=== PATIENT | female | born 1935 | race Caucasian/White ===

== ENCOUNTER 2016-07-21 17:23 | Emergency (ER) | payer OTHER ==
[~2016-07-21] VITALS: Ht 152.4 cm; Wt 40.4 kg
[~2016-07-21 17:23] MED LIST: CEPH250C PO; FOLI-43 PO; METHOTREXATE; NEU300 PO; NORCO5 PO; PRED1TAB PO; PRO40 PO
[2016-07-21 17:41] VITALS: BP 131/74; PULSE 67; RESP 19; TEMP 98; O2SAT 97
[2016-07-21] MEDS ORDERED: predisone (17:49)
--- NOTE | 2016-07-21 20:00 | NUR ---
KELLI Davey examing pt.
--- NOTE | 2016-07-21 20:00 | NUR ---
Patient to [facility] for evaluation. Side rails up. Report given to Ted HAHN. Placed by Vandana HAHN.
--- NOTE | 2016-07-21 20:00 | NUR ---
Pt had a mechanical fall while ambulating with her walker. Pt injured her L hip. Denies KO. Remembers event. Will continue to monitor. No other injuries or complaints mentioned/noted. No distress noted.
[2016-07-21 21:15] VITALS: BP 131/74; PULSE 76; RESP 19; TEMP 98; O2SAT 97
--- NOTE | 2016-07-21 21:15 | NUR ---
Patient given written and verbal discharge instructions and verbalizes understanding. ER TURN OPERATOR discussed with patient the results and treatment provided. Patient in stable condition. ID arm band removed. Rx of Tylenol given. Patient educated on pain management and to follow up with PMD. Pain Scale 0/10. Opportunity for questions provided and answered.
== END 2016-07-21 21:15 | disposition home or self-care (01) ==
LOC: SED 17:23
DX: M25.552 Pain in left hip (principal); F03.90 Unspecified dementia, unspecified severity, without behavioral disturbance, psychotic disturbance, mood disturbance, and anxiety; M06.9 Rheumatoid arthritis, unspecified; Z88.0 Allergy status to penicillin; W17.89XA Other fall from one level to another, initial encounter; Y93.89 Activity, other specified; Y99.8 Other external cause status; Y92.89 Other specified places as the place of occurrence of the external cause
CPT/HCPCS: 73510-TC; 99284

== ENCOUNTER 2016-09-30 18:57 | Emergency (ER) | payer OTHER ==
[~2016-09-30] VITALS: Ht 147.3 cm; Wt 39.5 kg
[~2016-09-30 18:57] MED LIST changes: -FOLI-43 PO; -NEU300 PO; -PRED1TAB PO; -PRO40 PO; +predisone
[2016-09-30 19:00] VITALS: BP_SYST 132
[2016-09-30] MEDS: ACETAMINOPHEN 500 MG TABLET PO ONE (20:49)
[2016-09-30 21:57] VITALS: BP_SYST 132
== END 2016-09-30 21:57 | disposition home or self-care (01) ==
LOC: SED 18:57
DX: S20.212A Contusion of left front wall of thorax, initial encounter (principal); R03.0 Elevated blood-pressure reading, without diagnosis of hypertension; F03.90 Unspecified dementia, unspecified severity, without behavioral disturbance, psychotic disturbance, mood disturbance, and anxiety; M06.9 Rheumatoid arthritis, unspecified; Z88.0 Allergy status to penicillin; W01.0XXA Fall on same level from slipping, tripping and stumbling without subsequent striking against object, initial encounter; Y93.89 Activity, other specified; Y92.89 Other specified places as the place of occurrence of the external cause; Y99.8 Other external cause status
CPT/HCPCS: 71010; 73030; 99284

== ENCOUNTER 2017-03-17 06:48 | Inpatient (IN) | payer OTHER ==
[~2017-03-17] VITALS: Ht 147.3 cm; Wt 44.5 kg
[2017-03-17 06:55] VITALS: BP_SYST 159
[2017-03-17] MEDS ORDERED: HYDROcodone/ACETAMIN 5-325 MG TAB (NORCO/ VICODIN) PO ONE (07:15)
[2017-03-17] MEDS ORDERED: ONDANSETRON 4 MG ODT TAB PO ONE (09:00)
[2017-03-17 09:21] LABS: BASOPHILS # (AUTO) 0.1 K/uL (0.0-0.2); BASOPHILS % (AUTO) 0.9 % (0.0-2.0); EOSINOPHILS # (AUTO) 0.1 K/uL (0.0-0.4); EOSINOPHILS % (AUTO) 1.3 % (0.0-4.0); LYMPHOCYTES # (AUTO) 1.5 K/uL (1.0-5.5); LYMPHOCYTES % (AUTO) 15.7 % (20.5-51.5); MEAN CORPUSCULAR HEMOGLOBIN 35 pg (27-31); MEAN CORPUSCULAR HGB CONC 33 % (32-36); MEAN CORPUSCULAR VOLUME 104 fL (79.0-98.0); MONOCYTES # (AUTO) 0.7 K/uL (0.0-1.0); MONOCYTES % (AUTO) 7.3 % (1.7-9.3); NEUTROPHILS # (AUTO) 7.3 K/uL (1.8-7.7); NEUTROPHILS % (AUTO) 74.8 % (40.0-70.0); PLATELET COUNT (AUTO) 207 K/uL (130-430); RED BLOOD CELL COUNT(AUTO) 2.88 MIL/uL (4.2-6.2); RED CELL DISTRIBUTION WIDTH 13.4 % (9.0-15.0); WHITE BLOOD COUNT (AUTO) 9.7 K/uL (4.8-10.8)
[2017-03-17 09:28] LABS: ANION GAP 10 (5-15); CHLORIDE 98 mmol/L (98-107); CREATININE 1.07 mg/dL (0.55-1.30); GLUCOSE 105 mg/dL (70-99); POTASSIUM 3.3 mmol/L (3.5-5.1); SODIUM SERUM 131 mmol/L (136-145); UREA NITROGEN, BLOOD 19 mg/dL (8-21)
[2017-03-17 09:33] LABS: ALANINE AMINOTRANSFERASE 11 U/L (12-78); ASPARTATE AMINOTRANSFERASE 13 U/L (10-37); TOTAL BILIRUBIN 0.3 mg/dL (0.0-1.0)
[2017-03-17 10:07] LABS: INR 0.9 (0.8-1.2); PROTHROMBIN TIME 9.5 SECS (9.5-12.5)
[2017-03-17] MEDS ORDERED: MORPHINE 2 MG/ML INJ. SYRINGE IVP PRN (10:30)
[2017-03-17] MEDS ORDERED: VITD2000 PO (10:39)
[2017-03-17] MEDS ORDERED: FOLI-43 PO (10:39)
[2017-03-17] MEDS ORDERED: METH2.5T PO (10:39)
[2017-03-17] MEDS ORDERED: PRED5TAB PO (10:39)
[2017-03-17] MEDS ORDERED: NAPR220C15 PO (10:39)
[2017-03-17] MEDS ORDERED: OMEP20CA10 PO (10:39)
[2017-03-17 10:51] LABS: BILIRUBIN,URINE 1+ (NEGATIVE); BLOOD, URINE NEGATIVE (NEGATIVE); CLARITY/URINE CLEAR (CLEAR); COLOR,URINE YELLOW (YELLOW); GLUCOSE,URINE NEGATIVE (NEGATIVE); KETONES,URINE TRACE (NEGATIVE); LEUKOCYTE ESTERASE ,URINE 2+ (NEGATIVE); NITRITE, URINE POSITIVE (NEGATIVE); PROTEIN URINE TRACE (NEGATIVE); UROBILINOGEN,URINE 0.2 (0.2-1.0)
[2017-03-17 10:56] VITALS: BP_SYST 158
[2017-03-17 10:59] VITALS: BP_SYST 158
[2017-03-17 11:08] LABS: BACTERIA,URINE FEW /HPF (None Seen); RBC,URINE 0-3 /HPF (0-3)
[2017-03-17 11:09] LABS: MUCUS,URINE None Seen /LPF (None Seen)
[2017-03-17] MEDS: ONDANSETRON HCL 4 MG/2 ML VIAL IVP PRN ×2 (13:21→16:32)
[2017-03-17] MEDS: ACETAMINOPHEN 325 MG TABLET PO PRN (15:28)
[2017-03-17] MEDS ORDERED: MORPHINE 4 MG/ML INJ. SYRINGE IVP PRN (15:45)
[2017-03-17] MEDS: HYDROcodone/ACETAMIN 5-325 MG TAB (NORCO/ VICODIN) PO PRN (18:48)
[2017-03-17 20:14] LABS: BASOPHILS # (AUTO) 0.1 K/uL (0.0-0.2); BASOPHILS % (AUTO) 0.8 % (0.0-2.0); EOSINOPHILS # (AUTO) 0.2 K/uL (0.0-0.4); EOSINOPHILS % (AUTO) 2.1 % (0.0-4.0); HEMATOCRIT 25.9 % (36-48); HEMOGLOBIN 8.8 g/dL (12.0-16.0); LYMPHOCYTES # (AUTO) 1.5 K/uL (1.0-5.5); LYMPHOCYTES % (AUTO) 19.2 % (20.5-51.5); MEAN CORPUSCULAR HEMOGLOBIN 35 pg (27-31); MEAN CORPUSCULAR HGB CONC 34 % (32-36); MEAN CORPUSCULAR VOLUME 103 fL (79.0-98.0); MONOCYTES # (AUTO) 0.9 K/uL (0.0-1.0); NEUTROPHILS # (AUTO) 5.1 K/uL (1.8-7.7); NEUTROPHILS % (AUTO) 66.9 % (40.0-70.0); PLATELET COUNT (AUTO) 193 K/uL (130-430); RED BLOOD CELL COUNT(AUTO) 2.51 MIL/uL (4.2-6.2); RED CELL DISTRIBUTION WIDTH 13.2 % (9.0-15.0); WHITE BLOOD COUNT (AUTO) 7.8 K/uL (4.8-10.8)
[2017-03-17 20:45] VITALS: BP_SYST 106
[2017-03-17 23:11] LABS: PROTHROMBIN TIME 9.8 SECS (9.5-12.5)
[2017-03-18] VITALS (7 sets, daily range): BP systolic 100–142
[2017-03-18] MEDS: HYDROcodone/ACETAMIN 5-325 MG TAB (NORCO/ VICODIN) PO PRN ×2 (06:28→19:15)
[2017-03-18] MEDS: PREDNISONE 5 MG TABLET PO SCH (09:38)
[2017-03-18] MEDS: OMEPRAZOLE 20 MG CAPSULE.DR (PriLOSEC) PO SCH (09:39)
[2017-03-18] MEDS: ONDANSETRON 4 MG ODT TAB PO PRN (14:54)
[2017-03-19] MEDS: HYDROcodone/ACETAMIN 5-325 MG TAB (NORCO/ VICODIN) PO PRN ×2 (03:10→15:24)
[2017-03-19 03:54] VITALS: BP_SYST 145
[2017-03-19 08:00] VITALS: BP_SYST 122
[2017-03-19] MEDS: PREDNISONE 5 MG TABLET PO SCH (08:46)
[2017-03-19] MEDS: OMEPRAZOLE 20 MG CAPSULE.DR (PriLOSEC) PO SCH (08:46)
[2017-03-19 09:19] LABS: BASOPHILS # (AUTO) 0.2 K/uL (0.0-0.2); BASOPHILS % (AUTO) 2.5 % (0.0-2.0); EOSINOPHILS # (AUTO) 0.1 K/uL (0.0-0.4); EOSINOPHILS % (AUTO) 1.9 % (0.0-4.0); HEMATOCRIT 26.7 % (36-48); HEMOGLOBIN 8.8 g/dL (12.0-16.0); LYMPHOCYTES # (AUTO) 1.4 K/uL (1.0-5.5); LYMPHOCYTES % (AUTO) 18.7 % (20.5-51.5); MEAN CORPUSCULAR HEMOGLOBIN 34 pg (27-31); MEAN CORPUSCULAR HGB CONC 33 % (32-36); MEAN CORPUSCULAR VOLUME 104 fL (79.0-98.0); MONOCYTES # (AUTO) 0.9 K/uL (0.0-1.0); MONOCYTES % (AUTO) 12.4 % (1.7-9.3); NEUTROPHILS % (AUTO) 64.5 % (40.0-70.0); PLATELET COUNT (AUTO) 213 K/uL (130-430); RED BLOOD CELL COUNT(AUTO) 2.56 MIL/uL (4.2-6.2); RED CELL DISTRIBUTION WIDTH 13.3 % (9.0-15.0); WHITE BLOOD COUNT (AUTO) 7.6 K/uL (4.8-10.8)
[2017-03-19] MEDS ORDERED: LEVOFLOXACIN 500 MG TABLET PO ONE (10:00)
[2017-03-19 11:28] VITALS: BP_SYST 106
[2017-03-19] MEDS ORDERED: ACET-2165 PO (11:30)
[2017-03-19] MEDS ORDERED: LEVO500T20 (11:32)
[2017-03-19] MEDS: ONDANSETRON 4 MG ODT TAB PO PRN ×2 (13:05→18:09)
[2017-03-19] MEDS: ACETAMINOPHEN 325 MG TABLET PO PRN (13:08)
[2017-03-19 15:10] VITALS: BP_SYST 98
[2017-03-19 20:10] VITALS: BP_SYST 117
[2017-03-19 23:46] VITALS: BP_SYST 133
[2017-03-20] MEDS: HYDROcodone/ACETAMIN 5-325 MG TAB (NORCO/ VICODIN) PO PRN (00:07)
[2017-03-20 03:43] VITALS: BP_SYST 133
[2017-03-20 07:47] VITALS: BP_SYST 152
[2017-03-20] MEDS: PREDNISONE 5 MG TABLET PO SCH (08:23)
[2017-03-20] MEDS: OMEPRAZOLE 20 MG CAPSULE.DR (PriLOSEC) PO SCH (08:23)
[2017-03-20] MEDS ORDERED: LEVOFLOXACIN 500 MG TABLET PO SCH (10:00)
[2017-03-20 11:24] VITALS: BP_SYST 142
== END 2017-03-20 16:35 | DRG 605 ==
LOC: SED 06:48 → SMU 09:59
PROVIDERS: ADMIT Internal Medicine Hospice and Palliative Medicine; ATTEND Internal Medicine Hospice and Palliative Medicine
DX: S70.01XA Contusion of right hip, initial encounter (principal); D64.9 Anemia, unspecified; F03.90 Unspecified dementia, unspecified severity, without behavioral disturbance, psychotic disturbance, mood disturbance, and anxiety; N39.0 Urinary tract infection, site not specified; M06.9 Rheumatoid arthritis, unspecified; W19.XXXA Unspecified fall, initial encounter; M81.0 Age-related osteoporosis without current pathological fracture; X58.XXXA Exposure to other specified factors, initial encounter; Y93.89 Activity, other specified; Y92.89 Other specified places as the place of occurrence of the external cause; Z93.3 Colostomy status; Y99.8 Other external cause status
CPT/HCPCS: 36415; 72131; 72192-TC; 73502; 73564; 80053; 81000-TC; 83605; 84484; 85025; 85610-TC; 85730-TC; 93005; 97110-GP; 99285; A5061; J2270; J2405; J7512; Q0162

== ENCOUNTER 2017-04-04 13:56 | Emergency (ER) | payer OTHER ==
[~2017-04-04] VITALS: Ht 144.8 cm; Wt 43.5 kg
[~2017-04-04 13:56] MED LIST changes: +ACET-2165 PO; -CEPH250C PO; +FOLI-43 PO; +LEVO500T20; +METH2.5T PO; -METHOTREXATE; +NAPR220C15 PO; -NORCO5 PO; +OMEP20CA10 PO; +PRED5TAB PO; +VITD2000 PO; -predisone
[2017-04-04 14:15] VITALS: BP_SYST 119
[2017-04-04 16:17] VITALS: BP_SYST 119
== END 2017-04-04 16:17 | disposition home or self-care (01) ==
LOC: SED 13:56
DX: S20.212A Contusion of left front wall of thorax, initial encounter (principal); S09.90XA Unspecified injury of head, initial encounter; Z88.0 Allergy status to penicillin; M06.9 Rheumatoid arthritis, unspecified; F03.90 Unspecified dementia, unspecified severity, without behavioral disturbance, psychotic disturbance, mood disturbance, and anxiety; Z79.899 Other long term (current) drug therapy; W06.XXXA Fall from bed, initial encounter; Y93.89 Activity, other specified; Y92.89 Other specified places as the place of occurrence of the external cause; Y99.8 Other external cause status
CPT/HCPCS: 70450-TC; 71250-TC; 72192-TC; 99284

== ENCOUNTER 2017-08-09 14:26 | Emergency (ER) | payer OTHER ==
[~2017-08-09] VITALS: Ht 139.7 cm; Wt 39.5 kg
[2017-08-09 14:31] VITALS: BP_SYST 131
[2017-08-09 16:59] VITALS: BP_SYST 115
== END 2017-08-09 16:28 | disposition home or self-care (01) ==
LOC: SED 14:26
DX: Z46.6 Encounter for fitting and adjustment of urinary device (principal); F03.90 Unspecified dementia, unspecified severity, without behavioral disturbance, psychotic disturbance, mood disturbance, and anxiety; M06.9 Rheumatoid arthritis, unspecified; Z88.0 Allergy status to penicillin; Z79.899 Other long term (current) drug therapy
CPT/HCPCS: 99284

== ENCOUNTER 2017-11-18 19:59 | Emergency (ER) | payer OTHER ==
[~2017-11-18] VITALS: Ht 142.2 cm; Wt 39.9 kg
[~2017-11-18 19:59] MED LIST changes: +DENO60DI SQ; +FERR-57 PO; +namenda PO
[2017-11-18 20:00] VITALS: BP_SYST 115
[2017-11-18 20:36] VITALS: BP_SYST 115
== END 2017-11-18 20:35 | disposition home or self-care (01) ==
LOC: SED 19:59
DX: H11.31 Conjunctival hemorrhage, right eye (principal); F03.90 Unspecified dementia, unspecified severity, without behavioral disturbance, psychotic disturbance, mood disturbance, and anxiety; M06.9 Rheumatoid arthritis, unspecified; Z88.0 Allergy status to penicillin; Z88.8 Allergy status to other drugs, medicaments and biological substances
CPT/HCPCS: 99283

== ENCOUNTER 2018-01-12 14:18 | Emergency (ER) | payer OTHER ==
[~2018-01-12] VITALS: Ht 147.3 cm; Wt 40.8 kg
[2018-01-12 14:18] VITALS: BP_SYST 136
--- NOTE | 2018-01-12 14:25 | NUR ---
Pt placed to ER bed 06, report given to SELMA Crisostomo.
--- NOTE | 2018-01-12 14:30 | NUR ---
Pt complains of right ankle pain for the past three weeks. Pt denies any trauma. Noted bruising to left knee and minor swelling. Pt denies N/V or fever. NO other injuries/complaints per patient or noted. Family at bedside.
--- NOTE | 2018-01-12 14:35 | NUR ---
ER Dr. Barton at bedside examining patient.
[2018-01-12 16:58] VITALS: BP_SYST 109
--- NOTE | 2018-01-12 16:59 | NUR ---
Patient given written and verbal discharge instructions and verbalizes understanding. ER MD discussed with patient the results and treatment provided. Patient in stable condition. ID arm band removed. Rx of motrin given. Patient educated on pain management and to follow up with PMD. Pain Scale 3/10. Opportunity for questions provided and answered. Medication side effect fact sheet provided.
== END 2018-01-12 16:59 | disposition home or self-care (01) ==
LOC: SED 14:18
DX: S80.02XA Contusion of left knee, initial encounter (principal); S90.01XA Contusion of right ankle, initial encounter; M19.90 Unspecified osteoarthritis, unspecified site; E11.9 Type 2 diabetes mellitus without complications; R03.0 Elevated blood-pressure reading, without diagnosis of hypertension; F03.90 Unspecified dementia, unspecified severity, without behavioral disturbance, psychotic disturbance, mood disturbance, and anxiety; Z88.0 Allergy status to penicillin; Z79.899 Other long term (current) drug therapy; X58.XXXA Exposure to other specified factors, initial encounter; Y93.89 Activity, other specified; Y92.89 Other specified places as the place of occurrence of the external cause; Y99.8 Other external cause status
CPT/HCPCS: 73560-TC; 99284

== ENCOUNTER 2018-04-27 20:59 | Inpatient (IN) | payer OTHER ==
[~2018-04-27] VITALS: Ht 144.8 cm; Wt 42.2 kg
[~2018-04-27 20:59] MED LIST changes: -ACET-2165 PO; -DENO60DI SQ; -FERR-57 PO; -LEVO500T20; +SERT25TA PO
[2018-04-27 21:22] VITALS: BP_SYST 150
--- NOTE | 2018-04-27 21:22 | NUR ---
Patient to ER bed 1 to gown for evaluation. Side rails up. Report given to SELMA Nolasco.
--- NOTE | 2018-04-27 22:10 | NUR ---
ER at bedside examining patient.
--- NOTE | 2018-04-27 22:20 | NUR ---
Pt came in to the ED for vomitting and generalized weakness. PT's daughter says that she reports the symptoms started at 1300 today and she has not been able to keep anything down. Pt was in this ED for a UTI 04/10/2018 and was put on a leg harris, started on ABX for 7 days. No fever, chills, chest pain, SOB, abd pain, or diarrhea. NO other complaints/injuries noted. Jamison. cont. to monitor.
--- NOTE | 2018-04-27 22:20 | NUR ---
Note undone in EDM - 04/28/18 at 0630 by [email or web address] Pt came in to the ED for comitting and generalized weakness. PT's daughter says that she reports the symptoms started at 1300 today and she has not been able to keep anything down. Pt was in this ED for a UTI 04/10/2018 and was put on a leg harris, started on ABX for 7 days. No fever, chills, chest pain, SOB, abd pain, or diarrhea. NO other complaints/injuries noted. Jamison. cont. to monitor.
--- NOTE | 2018-04-27 22:31 | NUR ---
Patient medicated with zofran IVP and fluids per MD order. Tolerated well. Will cont. to monitor.
[2018-04-27] MEDS ORDERED: NACL 0.9% 1,000 ML IV ONE (23:09)
[2018-04-27] MEDS ORDERED: ONDANSETRON HCL 4 MG/2 ML VIAL IVP ONE (23:15)
[2018-04-27 23:40] LABS: HEMATOCRIT 34.8 % (36-48); HEMOGLOBIN 11.6 g/dL (12.0-16.0); MEAN CORPUSCULAR HEMOGLOBIN 35 pg (27-31); MEAN CORPUSCULAR HGB CONC 33 % (32-36); MEAN CORPUSCULAR VOLUME 106 fL (79.0-98.0); PLATELET COUNT (AUTO) 245 K/uL (130-430); RED BLOOD CELL COUNT(AUTO) 3.29 MIL/uL (4.2-6.2); RED CELL DISTRIBUTION WIDTH 13.5 % (9.0-15.0); WHITE BLOOD COUNT (AUTO) 9.4 K/uL (4.8-10.8)
[2018-04-27 23:57] LABS: ANION GAP 9 (5-15); CALCIUM 9.2 mg/dL (8.4-11.0); CHLORIDE 103 mmol/L (98-107); CREATININE 0.87 mg/dL (0.55-1.30); GLUCOSE 79 mg/dL (70-99); POTASSIUM 4.4 mmol/L (3.5-5.1); SODIUM SERUM 139 mmol/L (136-145); UREA NITROGEN, BLOOD 17 mg/dL (8-21)
--- NOTE | 2018-04-28 | NUR ---
Pt resting comfortably in bed. No signs of acute distress.
[2018-04-28 00:01] LABS: ALANINE AMINOTRANSFERASE 19 U/L (12-78); ALBUMIN 3.2 g/dL (3.4-4.8); AMYLASE 91 U/L (0-100); ASPARTATE AMINOTRANSFERASE 17 U/L (10-37); LIPASE 92 U/L (73-393); TOTAL BILIRUBIN 0.3 mg/dL (0.0-1.0)
[2018-04-28 00:21] LABS: BASOPHILS % (MANUAL) 0 % (0-2); EOSINOPHILS % (MANUAL) 1 % (0-7); LYMPHOCYTES % (MANUAL) 9 % (20-46); MONOCYTES % (MANUAL) 5 % (0-11)
[2018-04-28 00:31] LABS: PROTHROMBIN TIME 9.9 SECS (9.5-12.5)
[2018-04-28 00:50] LABS: BILIRUBIN,URINE NEGATIVE (NEGATIVE); COLOR,URINE YELLOW (YELLOW); GLUCOSE,URINE NEGATIVE (NEGATIVE); KETONES,URINE NEGATIVE (NEGATIVE); LEUKOCYTE ESTERASE ,URINE 3+ (NEGATIVE); NITRITE, URINE POSITIVE (NEGATIVE); PROTEIN URINE TRACE (NEGATIVE); UROBILINOGEN,URINE 0.2 (0.2-1.0)
[2018-04-28 00:53] LABS: BLOOD, URINE TRACE (NEGATIVE); CLARITY/URINE SLIGHTLY HAZY (CLEAR)
[2018-04-28 00:59] LABS: WBC,URINE 80-100 /HPF (0-3)
[2018-04-28 01:00] LABS: BACTERIA,URINE MANY /HPF (None Seen)
[2018-04-28] MEDS ORDERED: LEVOFLOXACIN 500 MG/D5W 100 ML IV ONE (01:00)
--- NOTE | 2018-04-28 01:51 | NUR ---
Medication was given, pt tolerated well. No adverse reaction, will continue to monitor
--- NOTE | 2018-04-28 01:58 | NUR ---
Medication reconciliation completed with information provided by patient. Any prior medication reconciliation on file was reviewed and corrected.
[2018-04-28] MEDS ORDERED: ACETAMINOPHEN 325 MG TABLET PO PRN (04:45)
--- NOTE | 2018-04-28 04:50 | NUR ---
Patient will be admitted to care of Dr. Ramos. Admitted to TELE unit. Will go to room 100b. Belongings list completed. Summary report printed. Report will be given at bedside.
[2018-04-28 05:05] VITALS: BP_SYST 133
--- NOTE | 2018-04-28 05:12 | NUR ---
Transfer to TELE via ACLS protocol. Licensed nurse present. IV present no signs or symptoms of infiltration.
--- NOTE | 2018-04-28 05:12 | NUR ---
ADMISSION NOTE Received patient from ER via gurney. Patient admitted with diagnosis of . Patient is awake, alert, oriented X 4. Patient oriented to hospital room, call light, toileting, pain management and safety-teach back done. Patient informed that ADOLFO will be HER nurse and that their room number is 100B. Personal belongings checked and Belongings List documented. Call light within reach.
[2018-04-28] MEDS: 0.45% NS 500 ML IV SCH ×2 (06:25→09:42)
[2018-04-28] MEDS: ONDANSETRON HCL 4 MG/2 ML VIAL IVP PRN ×3 (06:29→20:21)
--- NOTE | 2018-04-28 06:43 | NUR ---
MD FOSTER CALLED [facility] AT SPOKE WITH DR.REDDY MO MALLU INVENTORY CONTROL ASSISTANT.
--- NOTE | 2018-04-28 07:01 | NUR ---
Spoke with Dr Richard Saleh and spoke with Dr Ramos and notify him about patient's allergy to Pennicillin and Meclemine. Dr Ramos ordered Meropenem earlier. Dr Ramos stated " Just go ahead, try it and closely monitor the patient". Will endorse to incoming nurse. Addendum: 04/28/18 at 0707 by Cristhian Zheng RN Dr Ramos also ordered to discontinue harris cath and insert new one.
--- NOTE | 2018-04-28 07:45 | NUR ---
INITIAL NOTE RECEIVED PATIENT FROM DIRECTOR OF SLEEP. PATIENT AWAKE IN BED. A/OX1. PATIENT CONFUSED. ROOM AIR. NO ACUTE DISTRESS. NO SOB. RESPIRATION EVEN AND UNLABORED. SKIN WARM AND DRY TO TOUCH. IV INTACT AND PATENT. MEGHAN IV FLUID ORDERED. LOMELI CATH INTACT AND PATENT DRAINING CLOUDY URINE; LOMELI WAS INSERTED 04/10/18, WILL CHANGE LOMELI TODAY WHEN PATIENT ALLOWS. COLOSTOMY INTACT AND PATENT TO LEFT ABDOMEN. BED IN LOW AND LOCKED POSITION. SIDERAIL UPX3. BED ALARM ON. ALL NEEDS MET. CALL LIGHT IN REACH. CONT TO MONITOR
--- NOTE | 2018-04-28 07:52 | NUR ---
Printer not working Wound picture is blurry, printer is not working. Ordered work order to service the printer.
[2018-04-28 08:00] VITALS: BP_SYST 156
--- NOTE | 2018-04-28 08:45 | NUR ---
NOTE PATIENT REFUSED BLOOD DRAW. EXPLAINED TO PATIENT WHAT IT IS FOR AND WHY IT IS NEEDED; PATIENT CONT TO REFUSE AT THIS TIME. WILL ATTEMPT AGAIN LATER
--- NOTE | 2018-04-28 09:15 | NUR ---
SEEN AND EXAMINED BY AT BEDSIDE. AWARE OF PATIENT'S ALLERGY AND OKAY TO ADMINISTER MERREM; TO MONITOR FOR S/SX ASE. CONT TO MONITOR
[2018-04-28] MEDS: ENOXAPARIN SODIUM 30 MG/0.3 ML SYRINGE SUBCUT SCH (09:35)
[2018-04-28] MEDS: MEROPENEM 500 MG in NS 50 ML IV SCH ×2 (09:36→20:16)
[2018-04-28] MEDS ORDERED: PREDNISONE 5 MG TABLET PO ONE (10:00)
[2018-04-28] MEDS ORDERED: CHOLECALCIFEROL (VITAMIN D3) 2,000 UNIT TABLET PO ONE (10:00)
[2018-04-28] MEDS ORDERED: OMEPRAZOLE 20 MG CAPSULE.DR (PriLOSEC) PO ONE (10:00)
--- NOTE | 2018-04-28 10:00 | NUR ---
LOMELI CHANGE EXPLAINED TO PATIENT THAT LOMELI CATH NEEDS TO BE CHANGED AND EXPLAINED PROCEDURE TO PATIENT; PATIENT OKAY TO CHANGE LOMELI AT THIS TIME. Lomeli catheter inserted with use of sterile technique. Bulb inflated with 10 cc sterile water. Immediate return of 20cc cloudy yellow urine noted. Bedside drainage bag placed below level of bladder. Pt tolerated procedure well. No complications noted.
--- NOTE | 2018-04-28 10:20 | NUR ---
IV MERREM PATIENT AWAKE/ALERT. VITAL SIGN STABLE. MEGHAN IV MERREM ORDERED WITH NO S/SX ADVERSE SIDE EFFECT NOTED; PATIENT DENIED SOB, ITCHING, DISCOMFORT. CONT TO MONITOR WITH FREQUENT VISUAL CHECKS. CALL LIGHT IN REACH
--- NOTE | 2018-04-28 11:40 | NUR ---
NOTE ASSISTED BLENDER HELPER FOR BLOOD DRAW. KEPT PATIENT CALM. BLOOD DRAW SUCCESSFUL WITH NO COMPLICATIONS NOTED AND PATIENT TOLERATED WELL.
[2018-04-28 11:56] LABS: EOSINOPHILS # (AUTO) 0.2 K/uL (0.0-0.4); HEMATOCRIT 35.1 % (36-48); HEMOGLOBIN 11.4 g/dL (12.0-16.0); MEAN CORPUSCULAR HEMOGLOBIN 34 pg (27-31); MEAN CORPUSCULAR HGB CONC 32 % (32-36); MEAN CORPUSCULAR VOLUME 105 fL (79.0-98.0); PLATELET COUNT (AUTO) 244 K/uL (130-430); RED BLOOD CELL COUNT(AUTO) 3.33 MIL/uL (4.2-6.2); RED CELL DISTRIBUTION WIDTH 13.8 % (9.0-15.0)
[2018-04-28 12:14] VITALS: BP_SYST 148
[2018-04-28 12:16] LABS: BASOPHILS % (AUTO) 0.5 % (0.0-2.0); EOSINOPHILS % (AUTO) 2.4 % (0.0-4.0); LYMPHOCYTES % (AUTO) 11.5 % (20.5-51.5); MONOCYTES % (AUTO) 9.7 % (1.7-9.3); WHITE BLOOD COUNT (AUTO) 9.6 K/uL (4.8-10.8)
[2018-04-28 12:17] LABS: LYMPHOCYTES # (AUTO) 1.1 K/uL (1.0-5.5); MONOCYTES # (AUTO) 0.9 K/uL (0.0-1.0); NEUTROPHILS # (AUTO) 7.4 K/uL (1.8-7.7)
[2018-04-28 12:19] LABS: NEUTROPHILS % (AUTO) 75.9 % (40.0-70.0)
[2018-04-28 12:30] LABS: ANION GAP 7 (5-15); CALCIUM 8.5 mg/dL (8.4-11.0); CHLORIDE 107 mmol/L (98-107); GLUCOSE 79 mg/dL (70-99); SODIUM SERUM 138 mmol/L (136-145); UREA NITROGEN, BLOOD 13 mg/dL (8-21)
[2018-04-28 12:33] LABS: ALANINE AMINOTRANSFERASE 14 U/L (12-78); ASPARTATE AMINOTRANSFERASE 15 U/L (10-37); TOTAL BILIRUBIN 0.4 mg/dL (0.0-1.0)
--- NOTE | 2018-04-28 13:00 | NUR ---
NOTE PATIENT REFUSED LUNCH WITH HAZMAT TANKER DRIVER. EXPLAINED TO PATIENT RISK OF SKIPPING MEALS. PATIENT AGREED TO EAT AND ASSISTED PATIENT WITH PATIENT EATING ABOUT 15% BEFORE PATIENT REFUSING TO EAT ANY MORE; PATIENT DID NOT WANT ANY SUBSTITUTES AT THIS TIME AND SHE SAID MAYBE LATER. ALL NEEDS MET. CONT TO MONITOR. CALL LIGHT IN REACH.
--- NOTE | 2018-04-28 14:24 | NUR ---
NOTE PATIENT SITTING UP IN BED. VITAL SIGN STABLE. NO C/O PAIN. NO ACUTE DISTRESS. NO SOB. RESPIRATION EVEN AND UNLABORED. SKIN WARM AND DRY TO TOUCH. ALL NEEDS MET. CALL LIGHT IN REACH. DAUGHTER AT BEDSIDE
[2018-04-28] MEDS: 0.45% NS 1,000 ML IV SCH (14:46)
--- NOTE | 2018-04-28 14:50 | NUR ---
IVF CHANGED PATIENT'S IVF. HUNG NEW BAG ORDERED, MEGHAN WELL. IV INTACT AND PATENT. CONT TO MONITOR. CALL LIGHT IN REACH.
--- NOTE | 2018-04-28 16:44 | NUR ---
NOTE PATIENT AWAKE IN BED. PATIENT STATED SHE SLEPT ENOUGH. DENIES PAIN AT THIS TIME. ALL NEEDS MET. CONT TO MONITOR. CALL LIGHT IN REACH.
[2018-04-28 16:46] VITALS: BP_SYST 120
--- NOTE | 2018-04-28 18:45 | NUR ---
CLOSING NOTE PATIENT SITTING UP IN BED WITH DAUGHTER AT BEDSIDE. NO ACUTE DISTRESS. NO SOB. RESPIRATION EVEN AND UNLABORED. SKIN WARM AND DRY TO TOUCH. IV INTACT AND PATENT. MEGHAN IV FLUID ORDERED. COLOSTOMY INTACT AND PATENT. LOMELI CATH INTACT AND PATENT DRAINING CLOUDY YELLOW URINE. ALL NEEDS MET. BED IN LOW AND LOCKED POSITION. SIDERAIL UPX3. CALL LIGHT IN REACH. CONT TO MONITOR. WILL ENDORSE TO ONCOMING SHIFT.
[2018-04-28 20:00] VITALS: BP_SYST 144
--- NOTE | 2018-04-28 20:00 | NUR ---
INITIAL NOTE PATIENT CARE ENDORSED FROM DAY SHIFT. PATIENT IS AWAKE IN BED, FORGETFUL. DAUGHTER AT BEDSIDE. RESPIRATIONS ARE EVEN AND UNLABORED ON ROOM AIR, NO REPORTS OF SOB. NO REPORTED SIGNS OR SYMPTOMS OF DISTRESS. SKIN WARM AND DRY TO TOUCH. IV INTACT AND PATENT W/ FLUIDS RUNNING. LOMELI IN PLACE AND DRAINING TO GRAVITY. COLOSTOMY IN PLACE, NO DRAINAGE NOTED, WILL CONTINUE TO MONITOR FOR OUTPUT. PATIENT EDUCATED ON SAFETY/FALL PRECAUTIONS, BED IN LOWEST POSITION WITH CALL LIGHT IN REACH, BED ALARM ON. ALL NEEDS MET. WILL CONTINUE TO MONITOR.
--- NOTE | 2018-04-28 22:00 | NUR ---
NURSING NOTES PT IS RESTING IN BED WITH EYES CLOSED, EASILY AROUSED. BREATHING IS EVEN AND UNLABORED. NO NOTED SIGNS OR SYMPTOMS OF DISTRESS. IV SITE DRY AND INTACT WITH FLUIDS RUNNING. LOMELI DRAINING TO GRAVITY. FALL/SAFETY PRECAUTIONS IN PLACE, CALL LIGHT W/IN REACH. BED ALARM IS ON. WILL CONTINUE TO MONITOR
[2018-04-29] VITALS (7 sets, daily range): BP systolic 125–150
[2018-04-29] MEDS: 0.45% NS 1,000 ML IV SCH ×3 (00:12→20:51)
--- NOTE | 2018-04-29 04:00 | NUR ---
NURSING NOTES PT AWOKE DISORIENTED. EASILY REORIENTED TO SURROUNDINGS. BREATHING IS EVEN AND UNLABORED. NO NOTED SIGNS OR SYMPTOMS OF DISTRESS. IV SITE DRY AND INTACT WITH FLUIDS RUNNING. LOMELI DRAINING TO GRAVITY. COLOSTOMY BAG CHANGED AND STOMA CARE PROVIDED. SMALL AMOUNT OF BROWN PASTY STOOL NOTED. FALL/SAFETY PRECAUTIONS IN PLACE, CALL LIGHT W/IN REACH. BED ALARM IS ON. WILL CONTINUE TO MONITOR
--- NOTE | 2018-04-29 06:38 | NUR ---
CLOSING NOTE PT IS RESTING IN BED WITH EYES CLOSED. BREATHING IS EVEN AND UNLABORED. NO NOTED SIGNS OR SYMPTOMS OF DISTRESS. SKIN IS WARM AND DRY. IV SITE IS DRY AND INTACT WITH ORDERED FLUID RUNNING. LOMELI IS INTACT AND DRAINING CLOUDY YELLOW URINE TO GRAVITY. COLOSTOMY INTACT AND PATENT. ALL CARE NEEDS WERE ADDRESSED. PATIENT EDUCATED ON SAFETY/FALL PRECAUTIONS AND WERE MAINTAIN THROUGHOUT SHIFT. BED ALARM IS ENGAGED. WILL ENDORSE CARE TO ONCOMING RN.
[2018-04-29] MEDS: MEROPENEM 500 MG in NS 50 ML IV SCH ×2 (08:26→20:42)
[2018-04-29] MEDS: PREDNISONE 5 MG TABLET PO SCH (08:27)
[2018-04-29] MEDS: CHOLECALCIFEROL (VITAMIN D3) 2,000 UNIT TABLET PO SCH (08:27)
[2018-04-29] MEDS: FOLIC ACID 1 MG TABLET PO SCH (08:27)
[2018-04-29] MEDS: ENOXAPARIN SODIUM 30 MG/0.3 ML SYRINGE SUBCUT SCH (08:28)
--- NOTE | 2018-04-29 08:40 | NUR ---
GI Patient vomited after eating with episode of coughing while eating ,oral care given assisted in feeding,aspiration precaution , Zofran IV push given slowly will monitor. Addendum: 04/29/18 at 1002 by Xenia Santos RN Patient able to sleep no sign of acute distress.
[2018-04-29] MEDS: ONDANSETRON HCL 4 MG/2 ML VIAL IVP PRN (08:47)
[2018-04-29] MEDS ORDERED: OMEPRAZOLE 20 MG CAPSULE.DR (PriLOSEC) PO SCH (09:00)
--- NOTE | 2018-04-29 09:20 | NUR ---
Dr. Ramos informed regarding nausea/vomiting , episode of chocking yesterday, difficulty of swallowing certain food , with n.o. carried out.
--- NOTE | 2018-04-29 09:31 | NUR ---
GI consult called: for Dr. Charles, ordered by Dr. Ramos, regarding difficulty swallowing/nausea/vomiting, spoke with Jailene.
--- NOTE | 2018-04-29 10:46 | NUR ---
Hilton Zarate called: for Minna, ordered by Dr. Ramos, left message.
--- NOTE | 2018-04-29 11:35 | NUR ---
Patient awake watching TV no sign of acute distress., needs attended.
--- NOTE | 2018-04-29 12:49 | NUR ---
Assisted patient with pureed diet , after 2 spoon patient started vomiting no aspiration , oral care given, feeding stop . Dr Richard villalta. Addendum: 04/29/18 at 1330 by Xenia Santos RN Kept NPO per MD.
[2018-04-29] MEDS ORDERED: PANTOPRAZOLE SODIUM 40 MG/VIAL (PROTONIX) IVP ONE (14:00)
--- NOTE | 2018-04-29 15:16 | NUR ---
S.T. SWALLOW EVAL COMPLETED. PT PRESENTS W/ FUNCTIONAL OROPHARYNGEAL SWALLOW FOR PUREE AND NECTAR THICK LIQUIDS. NO S/S OF ASPIRATION. 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 NO FURTHER P.O. GIVEN. REC: NPO. GI CONSULT TO ASSESS ESOPHAGEAL STATUS. NURSE THEODORE NOTIFIED. G8996 CK G8997 CK G8998 CK NOMS LEVEL 4
--- NOTE | 2018-04-29 18:37 | NUR ---
Patient is resting no sign of acute discomfort, denies any abdominal pain, needs attended.
--- NOTE | 2018-04-29 20:00 | NUR ---
INITIAL NOTES: PATIENT IN BED AWAKE ORIENTED X3. FORGET FUL OF TIME. OCCASIONAL CONFUSE. IVF INFUSING WELL, SITE CLEAR. CALL LIGHT WITHIN REACH. BED IN LOW POSITION FOR SAFETY. SINUS RHYTHM . WILL MONITOR CLOSELY.
--- NOTE | 2018-04-29 21:15 | NUR ---
Luigi DICK CALLED BACK. REPORTED SEVERE CONFUSION WITH ORDER OF SEROQUEL 25MG PO. WAS GIVEN AFTER PHARMACY VERIFIED. Addendum: 04/30/18 at 0808 by Barbra Mcclain RN THIS NOTES BELONGS TO ANOTHER PATIENT.
--- NOTE | 2018-04-29 22:00 | NUR ---
ASKING FOR WATER TO MOISTENED HER MOUTH. ICE CHIPS GIVEN THEN HAD SMALL EMESIS.
--- NOTE | 2018-04-29 22:30 | NUR ---
MOVED TO RM 103A FOR SAFETY. [facility] PATENT.
--- NOTE | 2018-04-30 02:00 | NUR ---
RESTING QUITELY BREATHING PATTERN REGULAR.
--- NOTE | 2018-04-30 06:30 | NUR ---
CLOSING: ALL NEEDS WERE MET. NO ACUTE CARDIOPULMONARY DISTRESS . IVF AND LOMELI PATENT.
[2018-04-30 06:49] LABS: BASOPHILS % (AUTO) 0.4 % (0.0-2.0); EOSINOPHILS # (AUTO) 0.2 K/uL (0.0-0.4); EOSINOPHILS % (AUTO) 1.9 % (0.0-4.0); HEMATOCRIT 32.5 % (36-48); HEMOGLOBIN 10.5 g/dL (12.0-16.0); LYMPHOCYTES # (AUTO) 0.9 K/uL (1.0-5.5); LYMPHOCYTES % (AUTO) 10.2 % (20.5-51.5); MEAN CORPUSCULAR HEMOGLOBIN 34 pg (27-31); MEAN CORPUSCULAR HGB CONC 32 % (32-36); MEAN CORPUSCULAR VOLUME 105 fL (79.0-98.0); MONOCYTES # (AUTO) 0.9 K/uL (0.0-1.0); MONOCYTES % (AUTO) 10.5 % (1.7-9.3); NEUTROPHILS # (AUTO) 6.6 K/uL (1.8-7.7); PLATELET COUNT (AUTO) 252 K/uL (130-430); RED BLOOD CELL COUNT(AUTO) 3.08 MIL/uL (4.2-6.2); RED CELL DISTRIBUTION WIDTH 13.3 % (9.0-15.0); WHITE BLOOD COUNT (AUTO) 8.6 K/uL (4.8-10.8)
--- NOTE | 2018-04-30 07:49 | NUR ---
Nutrition Update Ashwin Scale 14 noted. Pt admitted for UTI Diet: NPO BMI: 20.1 kg/m2 RD to follow per nutrition care standards.
[2018-04-30 07:50] VITALS: BP_SYST 128
--- NOTE | 2018-04-30 07:50 | NUR ---
OPENING NOTES, PATIENT IN BED AWAKE ORIENTED X2. (NAME, PLACE). FORGETUL. NO C/O PAIN, NO SOB, NO NAUSEA AND VOMITING AT THIS TIME. IVF INFUSING WELL, SITE CLEAR. CALL LIGHT WITHIN REACH. BED IN LOW POSITION FOR SAFETY. WILL CONTINUE TO MONITOR.
[2018-04-30] MEDS: MEROPENEM 500 MG in NS 50 ML IV SCH ×2 (07:58→20:22)
[2018-04-30] MEDS: PANTOPRAZOLE SODIUM 40 MG/VIAL (PROTONIX) IVP SCH (07:59)
[2018-04-30] MEDS: 0.45% NS 1,000 ML IV SCH ×3 (08:01→20:21)
[2018-04-30] MEDS: FOLIC ACID 1 MG TABLET PO SCH ×2 (08:02→09:00)
[2018-04-30] MEDS: ENOXAPARIN SODIUM 30 MG/0.3 ML SYRINGE SUBCUT SCH (08:02)
[2018-04-30] MEDS: PREDNISONE 5 MG TABLET PO SCH (08:03)
[2018-04-30] MEDS: CHOLECALCIFEROL (VITAMIN D3) 2,000 UNIT TABLET PO SCH (08:03)
[2018-04-30] MEDS: ONDANSETRON HCL 4 MG/2 ML VIAL IVP PRN (09:35)
[2018-04-30] MEDS ORDERED: GASTROGRAFIN 120 ML ONE (10:40)
--- NOTE | 2018-04-30 10:48 | NUR ---
PER LINEN SORTER PT WAS GIVEN GASTROGRAFIN FOR THE UGI SERIES. PT ALSO FELT NAUSEA AFTER HAVING ICE CHIPS AND WAS GIVEN ZOFRAN. PT VOMITED AFTER A WHILE. PAGED DR SCHWARZ TO MAKE AWARE.
[2018-04-30] MEDS ORDERED: IOHEXOL 100 ML IV ONE (11:21)
[2018-04-30 12:02] VITALS: BP_SYST 137
--- NOTE | 2018-04-30 13:01 | NUR ---
PT'S DAUGHTER CHEYENNE GAN GAVE TELEPHONE CONSENT FOR IV CONTRAST AND SHE ANSWERED QUESTIONNAIRE OVER THE PHONE. TELEPHONE CONSENT VERIFIED WITH RN. CASTAÑEDA.
--- NOTE | 2018-04-30 14:06 | NUR ---
PT'S DTR HCEYENNE HERE AND SIGN CONSENT FOR IV CONTRAST. CALLED CT AND INFORMED THEM THAT CONSENT HAS BEEN SIGNED.
--- NOTE | 2018-04-30 16:00 | NUR ---
PT BACK IN ROOM FROM CT OF ABD AND PELVIS. WAITING FOR RESULT.
[2018-04-30 16:02] VITALS: BP_SYST 155
--- NOTE | 2018-04-30 16:40 | NUR ---
DR SCHWARZ MADE AWARE OF THE PRELIM RESULT OF CT ABD/PELVIS. NO NEW ORDER. SAID. EGD WILL PUSH THRU IN AM.
--- NOTE | 2018-04-30 18:26 | NUR ---
PT'S DTR AT BEDSIDE. PT TOOK SOME JELLO AND APPLE JUICE AND CHICKEN BROTH.
--- NOTE | 2018-04-30 18:30 | NUR ---
CLOSING NOTES, PT HAS BEEN STABLE THE WHOLE SHIFT. NO C/O PAIN. PT HAD EPISODES OF NAUSEA AND VOMITING. ZOFRAN PROVIDED. KEPT NPO FOR CT ABD AND UGI SERIES, UGI SERIES NOT DONE SINCE PT UNABLE TO TOLERATE THE PO CONTRAST. CT ABD DONE. RESULTS RELAYED TO MD AND DTR. MD SAID HE WILL DO EGD IN AM. EGD CONSENT SIGNED AND IN CHART. CLEAR LIQUID GIVEN AT DINNER TIME. APPEARS THAT PT WAS ABLE TO TOLERATE IT. WILL ENDORSE TO NIGHT RN.
[2018-04-30 20:00] VITALS: BP_SYST 136
--- NOTE | 2018-04-30 20:00 | NUR ---
INITIAL NOTES: PATIENT IN BED AWAKE ORIENTED X2 ,FORGETFUL OF TIME. STATED BIRTHDATES.DENIES PAIN NOR DISCOMFORT.IVF INFUSING WELL. SINUS RHYTHM. CALL LIGHT WITHIN REACH. BED IN LOW POSITION.LOMELI DRAINING MERVAT COLOR URINE. LOMELI CARE DONE. REPOSITIONED.,COOPERATIVE. WILL MONITOR CLOSELY. ASSESSMENT DONE.
--- NOTE | 2018-04-30 21:00 | NUR ---
DUE MEDS GIVEN AFTER DISCUSSING EFFECTS OF MERREM IVPB.
--- NOTE | 2018-04-30 22:12 | NUR ---
PATIENT CONFUSE PLEASANTLY. DISORIENTED TO TIME AND PLACE. REMOVED MONITOR LEADS. REORIENTED X3.
--- NOTE | 2018-05-01 | NUR ---
PATIENT RESTING WITH EYES CLOSE/ CALL LIGHT WITHIN REACH.
[2018-05-01 00:08] VITALS: BP_SYST 143
--- NOTE | 2018-05-01 02:30 | NUR ---
LEADS OFF; SEEN PATIENT,AWAKE, CONFUSE ,VERBALIZING SHE IS SCARED BECAUSE THERE IS A MAN ON NEXT BED, ALL LEADS OFF .SAID THEY SHOULD NOT BE THERE. REORIENTED X3.
--- NOTE | 2018-05-01 04:30 | NUR ---
CONFUSE/HYGIENE: LEADS OFF AGAIN. RE EXPLAIN NEEDS OF CARDIAC MONITORING AND HYGEINE. OBEY CARE DONE.
[2018-05-01] MEDS: 0.45% NS 1,000 ML IV SCH (06:14)
[2018-05-01] MEDS ORDERED: SIMETHICONE 40 MG/0.6 ML ML ONE (06:40)
[2018-05-01] MEDS ORDERED: BENZOCAINE 20% 0.5mL UD SPRAY MM ONE (06:40)
--- NOTE | 2018-05-01 06:40 | NUR ---
MD ROUNDS: DR. ELLIS HERE .SEEN AND EXAMINE PATIENT.
--- NOTE | 2018-05-01 06:45 | NUR ---
GI LAB/CLOSING; GI RN AND TECH HERE .BROUGHT PATIENT TO GI LAB FOR EGD. WAS KEPT NPO AFTER MIDNIGHT. NO ACUTE DISTRESS. ALL NEEDS ATTENDED. CONFUSE AT TIMES.
[2018-05-01] MEDS: fentaNYL CITRATE/PF 100 MCG/2 ML AMP ONE ×3 (07:10→07:15)
[2018-05-01] MEDS: MIDAZOLAM HCL 5 MG/5 ML VIAL ONE ×3 (07:10→07:15)
--- NOTE | 2018-05-01 07:30 | NUR ---
Opening Note received report from overnight caregiver RN, pt currently in GI lab.
[2018-05-01 07:37] LABS: PROTHROMBIN TIME 9.6 SECS (9.5-12.5)
[2018-05-01 08:00] VITALS: BP_SYST 129
--- NOTE | 2018-05-01 08:05 | NUR ---
back from GI pt brought back from GI lab, received report from GI nurse Sumi, pt resting in bed, A&Ox3, respirations even and unlabored on room air, pt denies any pain, no acute distress noted, IV site clean, dry, and intact, harris catheter draining to gravity, colostomy to left abdomen in place, pt daughter Deena at bedside, pt and pts daughter educated on use of call light and asked to call for assistance, pt and pts daughter verbalized understanding, call light in reach, bed in low and locked position, bed alarm on, fall and aspiration precautions in place.
[2018-05-01] MEDS: MEROPENEM 500 MG in NS 50 ML IV SCH (09:10)
[2018-05-01] MEDS: PANTOPRAZOLE SODIUM 40 MG/VIAL (PROTONIX) IVP SCH (09:10)
[2018-05-01] MEDS: CHOLECALCIFEROL (VITAMIN D3) 2,000 UNIT TABLET PO SCH (09:11)
[2018-05-01] MEDS: FOLIC ACID 1 MG TABLET PO SCH (09:11)
[2018-05-01] MEDS: PREDNISONE 5 MG TABLET PO SCH (09:11)
[2018-05-01] MEDS: ENOXAPARIN SODIUM 30 MG/0.3 ML SYRINGE SUBCUT SCH (09:11)
--- NOTE | 2018-05-01 09:25 | NUR ---
Medication pt and pts daughter educated on medication use and side effects, pt and pts daughter verbalized understanding, tolerated medication administration well, no acute distress noted, fall and aspiration precautions in place.
--- NOTE | 2018-05-01 10:26 | NUR ---
RN Rounds pt resting in bed, respirations even and unlabored, no acute distress noted, fall and aspiration precautions in place.
--- NOTE | 2018-05-01 10:50 | NUR ---
MD Rounds rounds with Dr. Taiwo MD aware that pt tolerated clear liquids for breakfast, orders to advance diet as tolerated, advance to full liquid for lunch.
[2018-05-01 11:13] VITALS: BP_SYST 134
--- NOTE | 2018-05-01 12:30 | NUR ---
RN Rounds pt resting in bed, daughter at bedside, pt denies any pain, no acute distress noted, fall and aspiration precautions in place.
--- NOTE | 2018-05-01 14:55 | NUR ---
Spoke with MD spoke with Dr. Maravilla, per MD if pt tolerates soft diet for dinner, okay to D/C home.
--- NOTE | 2018-05-01 15:03 | NUR ---
Physical Therapy/Spoke with pts daughter patient ambulating in watt with physical therapy, pt tolerating well, no acute distress noted, spoke with patients daughter, Deena, updated her on plan of care to discharge patient if tolerating dinner well, Deena verbalized understanding.
--- NOTE | 2018-05-01 15:18 | NUR ---
Discharge Planning Received order to arrange home health. Phoned Coby, HCP CM and she is aware of the order and will make arrangements. Faxed the order. p [phone] f [phone].
[2018-05-01] MEDS ORDERED: CIPR-211 PO ×2 (16:02→17:00)
--- NOTE | 2018-05-01 16:17 | NUR ---
DCP . MET WITH PATIENT . A/O LIVES ALONE, HAS A CAREGIVER TUES/WEDS. FAMILY FRIEND. DTR AT BEDSIDE CHEYENNE BLANCHARD AND SISTER SHAHZAD KEENE TAKES TURN TO CARE FOR PATIENT. PT AND DTR CHEYENNE DECLINED SNF. DC HOME WITH HOME HEALTH FOR SAFETY EVAL. [facility] [phone]. ROSELIA WEBER RN/KARL T [phone]
[2018-05-01 16:32] VITALS: BP_SYST 112
--- NOTE | 2018-05-01 16:49 | NUR ---
RN Rounds pt resting in bed, daughter at bedside, respirations even and unlabored on room air, O2Sat 97%, no acute distress noted, fall and aspiration precautions in place.
[2018-05-01 16:53] VITALS: BP_SYST 112
--- NOTE | 2018-05-01 17:30 | NUR ---
Tolerating Dinner pt eating dinner, tolerating well, denies any nausea/vomiting, daughter at bedside, fall and aspiration precautions in place.
--- NOTE | 2018-05-01 18:10 | NUR ---
Discharge orders to discharge pt home with home health when tolerating diet, pt tolerating dinner well, denies any nausea or vomiting, pt and pts daughter Deena provided with discharge packet and instructions, written prescription for cipro provided, pt and pts daughter verbalized understanding, IV catheter removed, catheter intact, no bleeding, hospital ID band removed, leg bag for harris catheter in place, pt has walker in car, all belongings sent home with pt, pt accompanied by daughter Deena for discharge, pt stable, no acute distress noted, pt taken to parking lot via wheelchair.
== END 2018-05-01 18:10 | disposition home health service (06) | DRG 315 ==
LOC: SED 20:59 → STU 04-28 04:44 → SMU 05-01 08:07
PROVIDERS: ADMIT Internal Medicine; ATTEND Internal Medicine
PROC: 0DB68ZX Excision of Stomach, Via Natural or Artificial Opening Endoscopic, Diagnostic (ICD-10-PCS; principal; 2018-05-01 07:15)
PROC: 0D758ZZ Dilation of Esophagus, Via Natural or Artificial Opening Endoscopic (ICD-10-PCS; 2018-05-01 07:15)
DX: I95.9 Hypotension, unspecified (principal); N39.0 Urinary tract infection, site not specified; M06.9 Rheumatoid arthritis, unspecified; K29.60 Other gastritis without bleeding; K22.2 Esophageal obstruction; G89.29 Other chronic pain; R13.10 Dysphagia, unspecified; M54.9 Dorsalgia, unspecified; F32.9 Major depressive disorder, single episode, unspecified; F03.90 Unspecified dementia, unspecified severity, without behavioral disturbance, psychotic disturbance, mood disturbance, and anxiety; E11.9 Type 2 diabetes mellitus without complications; K21.9 Gastro-esophageal reflux disease without esophagitis; I10 Essential (primary) hypertension; M81.0 Age-related osteoporosis without current pathological fracture; Z79.899 Other long term (current) drug therapy; Z95.0 Presence of cardiac pacemaker; Z88.0 Allergy status to penicillin; Z88.8 Allergy status to other drugs, medicaments and biological substances
CPT/HCPCS: 36415; 43239; 74018; 80053; 81000-TC; 82150-TC; 83605; 83690-TC; 85007; 85025; 85027; 85610-TC; 87040-TC; 87081; 87086; 87186-TC; 92610-GN; 93005; 96361; 96365; 96375; 99285; A4409; A5061; C9113; J1650; J1956; J2185; J2250; J2405; J3010; J7030; J7512; J8610; Q9963; Q9967

== ENCOUNTER 2018-09-18 14:18 | Emergency (ER) | payer OTHER ==
[~2018-09-18] VITALS: Ht 149.9 cm; Wt 36.3 kg
[~2018-09-18 14:18] MED LIST changes: +CIPR-211 PO; -NAPR220C15 PO; -SERT25TA PO; -namenda PO
[2018-09-18 14:31] VITALS: BP_SYST 136
[2018-09-18] MEDS ORDERED: traMADol HCL HCL 50 MG TABLET (ULTRAM) PO ONE (15:45)
[2018-09-18 16:25] VITALS: BP_SYST 124
== END 2018-09-18 16:25 | disposition home or self-care (01) ==
LOC: SED 14:18
DX: S10.93XA Contusion of unspecified part of neck, initial encounter (principal); M19.012 Primary osteoarthritis, left shoulder; F03.90 Unspecified dementia, unspecified severity, without behavioral disturbance, psychotic disturbance, mood disturbance, and anxiety; E11.9 Type 2 diabetes mellitus without complications; R03.0 Elevated blood-pressure reading, without diagnosis of hypertension; Z88.0 Allergy status to penicillin; Z79.899 Other long term (current) drug therapy; X58.XXXA Exposure to other specified factors, initial encounter; Y93.89 Activity, other specified; Y92.89 Other specified places as the place of occurrence of the external cause; Y99.8 Other external cause status
CPT/HCPCS: 73030; 99283

== ENCOUNTER 2018-12-01 15:22 | Inpatient (IN) | payer OTHER ==
[~2018-12-01] VITALS: Ht 144.8 cm; Wt 41.3 kg
[2018-12-01 15:25] VITALS: BP_SYST 141
--- NOTE | 2018-12-01 15:25 | NUR ---
BROUGHT BACK TO BED #4 VIA WHEELCHAIR, PLACED IN BED #4 AND TRIAGED. REPORT GIVEN TO REID
--- NOTE | 2018-12-01 15:50 | NUR ---
Dr Ferrara at bedside examining patient.
[2018-12-01] MEDS ORDERED: ACETAMINOPHEN 325 MG TABLET PO ONE (16:00)
[2018-12-01 16:48] LABS: BASOPHILS # (AUTO) 0.1 K/uL (0.0-0.2); BASOPHILS % (AUTO) 1.3 % (0.0-2.0); EOSINOPHILS # (AUTO) 0.2 K/uL (0.0-0.4); HEMATOCRIT 29.3 % (36-48); HEMOGLOBIN 9.9 g/dL (12.0-16.0); LYMPHOCYTES # (AUTO) 0.8 K/uL (1.0-5.5); LYMPHOCYTES % (AUTO) 8.2 % (20.5-51.5); MEAN CORPUSCULAR HEMOGLOBIN 34 pg (27-31); MEAN CORPUSCULAR HGB CONC 34 % (32-36); MEAN CORPUSCULAR VOLUME 102 fL (79.0-98.0); MONOCYTES # (AUTO) 0.7 K/uL (0.0-1.0); MONOCYTES % (AUTO) 7.1 % (1.7-9.3); NEUTROPHILS # (AUTO) 8.4 K/uL (1.8-7.7); NEUTROPHILS % (AUTO) 81.4 % (40.0-70.0); PLATELET COUNT (AUTO) 332 K/uL (130-430); RED BLOOD CELL COUNT(AUTO) 2.88 MIL/uL (4.2-6.2); WHITE BLOOD COUNT (AUTO) 10.3 K/uL (4.8-10.8)
[2018-12-01 16:51] LABS: INR 0.9 (0.8-1.2); PROTHROMBIN TIME 9.3 SECS (9.5-12.5)
[2018-12-01 16:52] LABS: ANION GAP 9 (5-15); CALCIUM 9.4 mg/dL (8.4-11.0); CHLORIDE 97 mmol/L (98-107); CREATININE 0.83 mg/dL (0.55-1.30); GLUCOSE 105 mg/dL (70-99); POTASSIUM 4.1 mmol/L (3.5-5.1); SODIUM SERUM 132 mmol/L (136-145); UREA NITROGEN, BLOOD 18 mg/dL (8-21)
[2018-12-01 16:58] LABS: ALANINE AMINOTRANSFERASE 16 U/L (12-78); ALBUMIN 2.3 g/dL (3.4-4.8); ASPARTATE AMINOTRANSFERASE 20 U/L (10-37); TOTAL BILIRUBIN 0.4 mg/dL (0.0-1.0)
[2018-12-01] MEDS ORDERED: SUCRALFATE 1 GM/10 ML UDC GT SCH (17:00)
--- NOTE | 2018-12-01 17:00 | NUR ---
pt tolerated medication well.
[2018-12-01] MEDS ORDERED: LEVOFLOXACIN 500 MG TABLET PO ONE (17:45)
--- NOTE | 2018-12-01 18:30 | NUR ---
PT GIVEN LEVAQUIN PO. IV INFILTRATED.
--- NOTE | 2018-12-01 19:14 | NUR ---
# 16 FR Harris catheter with use of sterile technique. Immediate return of 40cc yellow urine noted. Bedside drainage bag placed below level of bladder. Urine sample collected and sent to lab. Pt tolerated procedure well. Patient arrived with harris in place, changed due to standard of practice prior to admission. Patient unable to toilet self.
--- NOTE | 2018-12-01 19:25 | NUR ---
# 24 gauge angiocath placed to LAC. Use of asceptic technique. Opsite placed over site. Blood return noted. Blood for lab drawn from site for Lactic Acid. Flushed with 10 cc of normal saline. No evidence of infiltration noted. Patient tolerated well.
--- NOTE | 2018-12-01 19:50 | NUR ---
Admission Note Received patient from ER with diagnosis of chest pain and pneumonia. Initial Plan of Care discussed-patient verbalized understanding. Family at bedside. Oriented to room, call light, pain management and safety.
[2018-12-01 19:54] VITALS: BP_SYST 143
--- NOTE | 2018-12-01 20:42 | NUR ---
PAGED PAGED THE DISTRIBUTION SPECIALIST PHYSICIAN DR. ANTONIO FOR ORDERS, SPOKE WITH JIE.
[2018-12-01] MEDS ORDERED: INSULIN REGULAR, HUMAN 100 UNITS/ML, 10 ML VIAL (humuLIN R) SUBCUT PRN (21:15)
[2018-12-01] MEDS ORDERED: ALBUTEROL SULFATE 0.083% 2.5 MG/3 ML VIAL.NEB INH PRN (21:15)
[2018-12-01] MEDS ORDERED: LEVOFLOXACIN 500 MG/D5W 100 ML IV SCH (21:15)
[2018-12-01] MEDS: HYDROcodone/ACETAMIN 5-325 MG TAB (NORCO/ VICODIN) PO PRN (21:49)
--- NOTE | 2018-12-01 21:49 | NUR ---
PAIN MGT PATIENT MEDICATED WITH NORCO FOR C/O HEADACHE. VITAL SIGNS STABLE. FAMILY AT BEDSIDE.
--- NOTE | 2018-12-01 23:00 | NUR ---
CONSULTATION PAGED/CALLED Reason for Consultation: CHEST PAIN Person Who was Notified: PORSHA Consulting Physician: VALERIE Mail Processor Specialty: CARIOLOGY Ordering Physician: PACO
[2018-12-01] MEDS: ONDANSETRON HCL 4 MG/2 ML VIAL IVP PRN (23:31)
--- NOTE | 2018-12-01 23:31 | NUR ---
N/V PATIENT HAD 1 EPISODE OF EMESIS AFTER BEING FED BY FAMILY. MEDICATED WITH ZOFRAN ORDERED. FOAM DRESSING APPLIED TO LEFT LOWER LEG SKIN TEAR.
[2018-12-02 01:00] VITALS: BP_SYST 95
[2018-12-02 01:18] VITALS: BP_SYST 95
--- NOTE | 2018-12-02 01:24 | NUR ---
ROUNDS PATIENT RESTING I BED. DENIES PAIN. BREATHING UNLABORED. CALL LIGHT WITH IN REACH. BED ALARM ON.
--- NOTE | 2018-12-02 03:37 | NUR ---
ROUNDS PATIENT WATCHING TV. DENIES PAIN AND NAUSEA. PATIENT REFUSED APPLICATION OF SCD'S ORDERED.
--- NOTE | 2018-12-02 04:15 | NUR ---
ROUNDS PATIENT AWAKE ATTEMPTING TO GET OUT OF BED PER PATIENT SHE NEEDS TO USE THE RESTROOM. PATIENT REMINDED SHE HAS A OLMELI AND A COLOSTOMY. LOMELI CATH EMPTIED AND SHOWED PATIENT HER URINE OUTPUT. PATIENT ALSO LOOKING FOR HER FAMILY AND CRYING. COMFORT MEASURES PROVIDED TO PATIENT. ATTEMPTED TO CALL DAUGHTER AAYUSH BUT NO ANSWER. WILL CONTINUE TO MONITOR PATIENT.
--- NOTE | 2018-12-02 04:52 | NUR ---
ROUNDS PATIENT STILL AWAKE WATCHING TV. CALM AND NOT CRYING AT THIS TIME. PER PATIENT SHE IS OK. CALL LIGHT WITH IN REACH. BED ALARM ON.
[2018-12-02] MEDS: HYDROcodone/ACETAMIN 5-325 MG TAB (NORCO/ VICODIN) PO PRN ×2 (05:23→14:39)
--- NOTE | 2018-12-02 05:23 | NUR ---
HEADACHE PATIENT MEDICATED WITH NORCO 5 MG FOR C/O HEADACHE 11/13. ASPIRATION PRECAUTION OBSERVED.
[2018-12-02] MEDS: PANTOPRAZOLE SODIUM 40 MG TAB PO SCH (06:22)
--- NOTE | 2018-12-02 06:22 | NUR ---
BLOOD SUGAR AM FINGERSTICK SUGAR 91. DUE MEDICATION GIVEN.
--- NOTE | 2018-12-02 06:42 | NUR ---
CLOSING NOTES PATIENT RESTING IN BED. BREATHING UNLABORED ON ROOM AIR. PATIENT NEEDS ATTENDED. BED IN LOWEST LOCKED POSITION. BED ALARM ON. CALL LIGHT WITH IN REACH.
[2018-12-02] MEDS ORDERED: DEXTROSE 50%-WATER 50 ML DISP.SYRIN IVP PRN (07:30)
[2018-12-02] MEDS ORDERED: GLUCOSE 15 GM GEL (in 37.5 GM TUBE) PO PRN (07:30)
[2018-12-02] MEDS ORDERED: D5W 1,000 ML IV PRN (07:30)
[2018-12-02 08:00] VITALS: BP_SYST 122
--- NOTE | 2018-12-02 08:00 | NUR ---
Note Pt assisted in sitting up in bed to eat her breakfast at this time. No SOB/resp distress or pain/discomfort was noted at this time. Tele unit attached and intact, denies any chest pain/discomfort at this time. No needs noted at this time. Pt next to nurses' station for close observation for needs and care. Call light within reach.
[2018-12-02] MEDS: FOLIC ACID 1 MG TABLET PO SCH (08:51)
[2018-12-02] MEDS: PREDNISONE 5 MG TABLET PO SCH (08:51)
[2018-12-02] MEDS ORDERED: OMEPRAZOLE 20 MG CAPSULE.DR (PriLOSEC) PO SCH (09:00)
[2018-12-02 09:24] LABS: BASOPHILS # (AUTO) 0.1 K/uL (0.0-0.2); BASOPHILS % (AUTO) 0.7 % (0.0-2.0); EOSINOPHILS # (AUTO) 0.2 K/uL (0.0-0.4); EOSINOPHILS % (AUTO) 2.8 % (0.0-4.0); HEMOGLOBIN 9.9 g/dL (12.0-16.0); LYMPHOCYTES # (AUTO) 0.6 K/uL (1.0-5.5); LYMPHOCYTES % (AUTO) 7.6 % (20.5-51.5); MEAN CORPUSCULAR HEMOGLOBIN 34 pg (27-31); MEAN CORPUSCULAR HGB CONC 34 % (32-36); MEAN CORPUSCULAR VOLUME 101 fL (79.0-98.0); MONOCYTES # (AUTO) 0.2 K/uL (0.0-1.0); MONOCYTES % (AUTO) 2.5 % (1.7-9.3); NEUTROPHILS # (AUTO) 7.3 K/uL (1.8-7.7); NEUTROPHILS % (AUTO) 86.4 % (40.0-70.0); PLATELET COUNT (AUTO) 304 K/uL (130-430); RED BLOOD CELL COUNT(AUTO) 2.87 MIL/uL (4.2-6.2); RED CELL DISTRIBUTION WIDTH 14.9 % (9.0-15.0); WHITE BLOOD COUNT (AUTO) 8.5 K/uL (4.8-10.8)
[2018-12-02 09:39] LABS: ALANINE AMINOTRANSFERASE 14 U/L (12-78); ALBUMIN 2.1 g/dL (3.4-4.8); ANION GAP 7 (5-15); ASPARTATE AMINOTRANSFERASE 21 U/L (10-37); CALCIUM 9.3 mg/dL (8.4-11.0); CHLORIDE 97 mmol/L (98-107); CREATININE 0.95 mg/dL (0.55-1.30); GLUCOSE 96 mg/dL (70-99); POTASSIUM 4.4 mmol/L (3.5-5.1); SODIUM SERUM 130 mmol/L (136-145); TOTAL BILIRUBIN 0.4 mg/dL (0.0-1.0); UREA NITROGEN, BLOOD 14 mg/dL (8-21)
--- NOTE | 2018-12-02 09:49 | NUR ---
Nutrition Update Ashwin Scale 14 noted. Pt admitted for chest pain, pneumonia. Diet: [facility] BMI: 19.7 kg/m2 RD to follow per nutrition care standards.
[2018-12-02 10:43] LABS: CHOLESTEROL 168 mg/dL (<200); HDL CHOLESTEROL 84 mg/dL (>55); TRIGLYCERIDES 81 mg/dL (30-150)
[2018-12-02 10:44] LABS: LDL CHOLESTEROL 69 mg/dL (<100)
--- NOTE | 2018-12-02 11:00 | NUR ---
Note Pt was seen and assessed by Dr Becky Ramos at bedside. Questions/concerns were answered at this time. No needs noted at this time. Pt had a difficult time turning her neck for the carotid US ([employer] tech at this time) stated maybe when family comes in they can assist pt in turning to one side and next for US of carotids to be done. Pt resting in bed at this time. Call light within reach.
[2018-12-02 11:33] VITALS: BP_SYST 121
[2018-12-02] MEDS: ACETAMINOPHEN 325 MG TABLET PO PRN (11:46)
--- NOTE | 2018-12-02 13:50 | NUR ---
Note Called Radiology dept and spoke to Prabhu ( [facility]) that family is now in room with pt and US of Carotids can be attempted now. Tech stated he would come over and do the test. 3 family members have been at bedside since around 12.30pm. Call light within reach.
[2018-12-02 15:29] VITALS: BP_SYST 116
--- NOTE | 2018-12-02 15:40 | NUR ---
Nutrition Assessment A - RD reviewed pertinent nutrition-related info via EMR (physician notes/nursing notes/labs/meds/nursing care trends/care activity). Pt was undergoing carotid artery US at time of RD visit. Spoke w/ family members at bedside. Pt has difficulty chewing/swallowing per family. Current diet order: [facility] diet. Anthropometrics verified. VIT D/VIT C/calcium supplementation reported. Pt does not like Ensure ONS. RD offered snack options; family agreeable to yogurt, puddings, ice cream. RD notified [facility] staff. Ht: 57"/4'9"; Wt: 90 lb/41 kg; IBW: 94 lb/43 kg; %IBW: 95; BMI: 19.7 kg/m2 ESTIMATED NUTRITIONAL NEEDS CALORIES/DAY: 8122-4373 kcal/day (25-30 kcal/kg CBW for maintenance) PROTEIN/DAY: 49 gm/day (1.2 gm/kg CBW for geriatric maintenance) FLUID/DAY:1 L/day (25 ml/kg CBW for geriatric maintenance) D - Inadequate nutritional intakes related to lack of appetite as evidenced by poor PO intakes. Chewing/swallowing difficulty related to geriatric status as evidenced by family report. I - Recommend CCHO, mechanical soft, chopped diet M - Monitor appetite and PO intakes w/ goal of pt meeting at least 75% of estimated nutritional needs, labs trending WNL, normal GI function and skin integrity/wt maintenance E - High Risk: RD to F/U within 2-3 days
--- NOTE | 2018-12-02 15:45 | NUR ---
Note Dr Martinez on the floor, at pt's bedside doing assessment and answering question/concerns from pt and her daughter (Maday) at this time.
--- NOTE | 2018-12-02 15:46 | NUR ---
Nutrition Recommendation * Recommend CCHO, mechanical soft, chopped diet LP, RD Please refer to Nutrition Assessment for details.
[2018-12-02] MEDS: LEVOFLOXACIN 250 MG/D5W 50 ML IV SCH (17:24)
--- NOTE | 2018-12-02 18:15 | NUR ---
Note Pt sitting up in bed eating her dinner with assistance from daughter at bedside. No SOB/resp distress or severe neck pain/discomfort noted at this time. Pt was checked on q1' and PRN all shift for needs and care. IV in left forearm intact and patent. Tele unit intact and attached at this time. No needs noted at this time. Call light within reach. Pt's daughter Maday has been at bedside most of afternoon and evening to assist pt with her needs and care.
[2018-12-02 20:00] VITALS: BP_SYST 135
--- NOTE | 2018-12-02 20:00 | NUR ---
Opening notes Pt AAOx3, forgetful at times. VSS, 96% on room air. Pt states pain is better at this time. IV saline lock L.FA 24G clear, patent. LLQ colostomy back intact and empty. Frances catheter draining to gravity with clear, yellow urine. Safety measures in place. Bed low, locked, side rails up, bed alarm on. Call light within reach. Family at bedside. To monitor.
--- NOTE | 2018-12-02 22:10 | NUR ---
Rounds Pt awake, forgetful. Pt states she has to urinate, reminded pt that she has the harris catheter to drain her urine. Pt verbalized understanding. Pt denies pain. Call light within reach. Safety measures in place. To monitor.
[2018-12-03 00:07] VITALS: BP_SYST 127
[2018-12-03] MEDS: HYDROcodone/ACETAMIN 5-325 MG TAB (NORCO/ VICODIN) PO PRN (00:40)
--- NOTE | 2018-12-03 00:42 | NUR ---
Pain med Pt awake, confused, calling family. Re oriented pt to place and time. Pt c/o severe headache, medicated with Diagonal 5/325mg PO as needed. Call light within reach. Bed alarm on. To monitor.
[2018-12-03] MEDS: ONDANSETRON HCL 4 MG/2 ML VIAL IVP PRN ×3 (04:25→17:03)
--- NOTE | 2018-12-03 04:30 | NUR ---
Zofran Pt vomitted small amount brown emesis, medicated with Zofran 4mg IVP as needed L. FA IV clear and patent. Pt ST heart rate 113 on the monitor. Gown changed. Call light within reach. Bed alarm on. Will continue to monitor.
[2018-12-03] MEDS: PANTOPRAZOLE SODIUM 40 MG TAB PO SCH ×2 (06:42→06:47)
--- NOTE | 2018-12-03 06:50 | NUR ---
Closing notes Pt awake, alert, Protonix PO held, pt has N/V. IV L FA 24 clear, patent. Call light within reach. Bed low, locked, siderails up, bed alarm on. Pt near nursing station to be monitored closely. All needs met throughout the night. To endorse to AM nurse.
[2018-12-03 07:12] LABS: BASOPHILS # (AUTO) 0.1 K/uL (0.0-0.2); BASOPHILS % (AUTO) 0.5 % (0.0-2.0); EOSINOPHILS % (AUTO) 0.3 % (0.0-4.0); HEMOGLOBIN 10.5 g/dL (12.0-16.0); LYMPHOCYTES # (AUTO) 0.5 K/uL (1.0-5.5); LYMPHOCYTES % (AUTO) 4.6 % (20.5-51.5); MEAN CORPUSCULAR HEMOGLOBIN 34 pg (27-31); MEAN CORPUSCULAR HGB CONC 34 % (32-36); MEAN CORPUSCULAR VOLUME 100 fL (79.0-98.0); MONOCYTES # (AUTO) 0.4 K/uL (0.0-1.0); MONOCYTES % (AUTO) 3.7 % (1.7-9.3); NEUTROPHILS # (AUTO) 10.4 K/uL (1.8-7.7); NEUTROPHILS % (AUTO) 90.9 % (40.0-70.0); PLATELET COUNT (AUTO) 364 K/uL (130-430); RED CELL DISTRIBUTION WIDTH 14.6 % (9.0-15.0); WHITE BLOOD COUNT (AUTO) 11.4 K/uL (4.8-10.8)
--- NOTE | 2018-12-03 07:30 | NUR ---
Opening note Patient resting in bed at this time, A/O x 3, no complaints of pain. NO SOB. No chest pain. 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 No cough noted. Iv site patent, and intact. No bleeding noted. On safety precautions, bed alarm on, bed in lowest position, bed alarm on, call light within reach. Will continue to monitor.
[2018-12-03 08:56] VITALS: BP_SYST 137
[2018-12-03 08:59] LABS: ALANINE AMINOTRANSFERASE 16 U/L (12-78); ALBUMIN 2.4 g/dL (3.4-4.8); ANION GAP 10 (5-15); ASPARTATE AMINOTRANSFERASE 21 U/L (10-37); CALCIUM 9.2 mg/dL (8.4-11.0); CHLORIDE 95 mmol/L (98-107); CREATININE 0.88 mg/dL (0.55-1.30); GLUCOSE 138 mg/dL (70-99); SODIUM SERUM 131 mmol/L (136-145); TOTAL BILIRUBIN 0.6 mg/dL (0.0-1.0); UREA NITROGEN, BLOOD 18 mg/dL (8-21)
[2018-12-03] MEDS: PREDNISONE 5 MG TABLET PO SCH ×2 (09:00→09:58)
[2018-12-03] MEDS: FOLIC ACID 1 MG TABLET PO SCH ×2 (09:00→09:57)
--- NOTE | 2018-12-03 09:45 | NUR ---
Medications Patient vomited folic acid medication, Zofran given for nausea. Paged MD, awaiting call back.
[2018-12-03] MEDS: HYDROcodone/ACETAMIN 10-325 MG TAB PO PRN (09:57)
--- NOTE | 2018-12-03 10:05 | NUR ---
Dr. Richard Ramos called back, made aware of nausea vomiting, new order for GI consult noted and carried out.
--- NOTE | 2018-12-03 10:18 | NUR ---
CONSULTATION PAGED REASON FOR CONSULTATION:NAUSEA, VOMITING WAS CONSULT CALLED?Y PERSON WHO WAS NOTIFIED:SERJIO CONSULTING PHYSICIAN:PREMA LLANOS SOFTWARE TESTING SPECIALIST SPECIALTY:GI SOFTWARE TESTING SPECIALIST PHONE NUMBER:[phone] REQUESTING PHYSICIAN:GUERDA NARANJO
[2018-12-03] MEDS ORDERED: METOCLOPRAMIDE HCL 10 MG/2 ML VIAL IVP ONE (11:45)
--- NOTE | 2018-12-03 11:45 | NUR ---
Dr. Eric Reyes called aware of patients condition. New order for KUB, reglan, and Clear liquid diet noted and carried out.
[2018-12-03 11:54] VITALS: BP_SYST 112
--- NOTE | 2018-12-03 13:02 | NUR ---
Rounds Patient is sleeping, no nausea, no vomiting noted. IV site intact, no bleeding noted. Frances catheter draining to gravity, with yellow urine, no sediments. Family at bedside.
--- NOTE | 2018-12-03 15:15 | NUR ---
Rounds Patient resting in bed, no nausea, no vomiting at this time. No complaints of pain. No SOB. Patient in stable condition at this time. No aspiration noted. No cough. No congestion noted.
[2018-12-03 15:26] VITALS: BP_SYST 115
[2018-12-03] MEDS: LEVOFLOXACIN 250 MG/D5W 50 ML IV SCH (17:11)
--- NOTE | 2018-12-03 17:30 | NUR ---
Nausea Patient complained of nausea, no vomiting noted. Zofran given as ordered, no adverse side effects noted. Patient in stable condition at this time.
[2018-12-03] MEDS: METOCLOPRAMIDE HCL 10 MG/2 ML VIAL IVP PRN (18:01)
--- NOTE | 2018-12-03 18:33 | NUR ---
Paged Dr. Gooden Patient noted with nausea, vomiting, unable to eat breakfast, lunch, and dinner. MD made aware, called back, new order for IV fluids noted and carried out.
--- NOTE | 2018-12-03 18:35 | NUR ---
Closing shift Patient resting in bed at this time, A/O x 3, no complaints of pain. NO SOB. No chest pain. Patient complains of nausea, reglan and zofran give, no vomiting noted at this time. No cough noted. Iv site patent, and intact. No bleeding noted. Frances catheter in place, draining yellow urine, no sediments noted. On safety and aspiration precautions, bed alarm on, bed in lowest position, bed alarm on, call light within reach. All needs met. Patient in stable condition.
[2018-12-03 19:00] VITALS: BP_SYST 110
[2018-12-03] MEDS ORDERED: NACL 0.9% 1,000 ML IV ONE (19:00)
--- NOTE | 2018-12-03 19:00 | NUR ---
change of shift.pt.presents quiescent affect;calm,somnolent.pt.presents lethargic affect.loc;confused.i have hanged the iv fluids bag;ns;@100ml/hr via peripheral line.diet status;clear liquids.i have been apprised the the pt's po intake%id poor.to f/u assess the pt's swallow capacity function.general status stable.respiratory status stable@room air;unlabored.call light/ telephone w/in the reach of the pt.
[2018-12-03 20:00] VITALS: BP_SYST 110
--- NOTE | 2018-12-03 20:00 | NUR ---
pt.assessed.v/s assessed.w/in normal limits,.02-sat%=94%@room air.respiratory status stable;unlabored.pt.assessed for cleanliness. pt.repositioned.i have assessed the iv access;intact;patent;iv fluids infusing.pt.presents colostomy;i have assessed the colostomy;intact;patent:fecal matter present.pt.presents harris catheter:i have assessed the harris catheter;intact;patent;urine content present.call light/telephone placed w/in the reach of the pt.
--- NOTE | 2018-12-03 20:30 | NUR ---
i assessed the pt's swallow capacity;function;i have attempted to feed the pt.jello;clear liquids; parameters;pt.reluctant to consume the jello.scant attempt to open the mouth.to apprise the md. of the pt's compromise to swallow capacity;function.
--- NOTE | 2018-12-03 22:00 | NUR ---
pt.assessed.pt presents quiescent affect;calm,somnolent.pt.assessed for cleanliness.pt.repositioned. i have assessed the colostomy;intact;patent;fecal material present,i have assessed the harris catheter; intact; patent.general status stable.respiratory status stale:02-sat%-94%room air.ayleen light/telephone placed w/in the reach of the pt.
--- NOTE | 2018-12-04 | NUR ---
pt.assessed.v/s assessed;values w/in normal limits.i have assessed the iv access;intact patent iv fluids infusing. i have assessed the colostomy;intact;patent;fecal material presents.pt assessed for cleanliness.pt.repositioned. i have assessed the harris catheter;intact;patent;urine content presents.general status stable.respiratory status stable@.room air.call light/telephone placed w/in the reach of the pt. Addendum: 12/04/18 at 0249 by Garcia Myles RN o2-sat%=94%@room air.
[2018-12-04 00:35] VITALS: BP_SYST 142
--- NOTE | 2018-12-04 02:00 | NUR ---
pt.assessed.pt.presents quiescent affect;calm,somnolent.i have assessed the colostomy;intact;patent;fecal matter present. i have assessed the harris catheter;intact;patent;urine content present.general status stable.respiratory status stable@room air.call light/telephone placed w/in the reach of the pt.pt.repositioned. Addendum: 12/04/18 at 0249 by Garcia Myles RN o2-sat%-94%@room air.
[2018-12-04] MEDS: METOCLOPRAMIDE HCL 10 MG/2 ML VIAL IVP PRN (03:09)
--- NOTE | 2018-12-04 03:09 | NUR ---
PAGED PAGED THE INDUSTRIAL MACHINE ASSEMBLER PHYSICIAN DR. ANTONIO, SPOKE WITH
--- NOTE | 2018-12-04 03:34 | NUR ---
PAGEDx2 SECOND PAGE SENT OUT TO THE CARPET YARN WINDER OPERATOR PHYSICIAN DR. ANTONIO
--- NOTE | 2018-12-04 03:54 | NUR ---
PAGED I PAGED DR. ANTONIO @ [phone] I SPOKE WITH MERVAT SEE SUPERVISOR THIS IS THE THIRD CALL
--- NOTE | 2018-12-04 04:00 | NUR ---
pt.assessed.pt.presents affect;rtless. paged.awaiting the return call per .pt.assessed for cleanliness. i have assessed the colostomy;intact;patent;fecal matter present.i have assessed the harris catheter;intact;patent;urine content present. i have assessed the iv access;intact;patent;iv fluids infusing.general status stable.respiratory status stable:02-sat%=95%. call light/ telephone placed w/in the reach of the pt.
--- NOTE | 2018-12-04 04:42 | NUR ---
PAGED I PAGED PACO @ [phone] I SPOKE WITH ANTWAN OSORIO THIS IS THE FORTH CALL
[2018-12-04] MEDS ORDERED: DIPHENHYDRAMINE INJ 50 MG/ML VIAL IVP ONE (04:45)
--- NOTE | 2018-12-04 05:00 | NUR ---
returned the page.i apprised of the pt's status;restless;agitation. ordered:benadryl;25mg ivp x1.i have administered the medication.to f/u re;the efficacy of the medication.
[2018-12-04] MEDS: PANTOPRAZOLE SODIUM 40 MG TAB PO SCH (06:11)
--- NOTE | 2018-12-04 06:14 | NUR ---
pt.assessed.pt.assessed for cleanliness.pt.repositioned.pt.presents quiescent affect;calm,somnolent.i have assessed the colostomy:intact;patent:fecal material present.i have assessed the harris catheter;intact;patent;urine content present. general status stable.respiratory status stable:02-sat%-94%@room air.call light/telephone placed w/in the reach of the pt.
--- NOTE | 2018-12-04 07:20 | NUR ---
RN OPENING NOTE RECEIVED SBAR REPORT AT BEDSIDE FROM ENDORSING RN. SEE VS FLOW SHEET
[2018-12-04 08:00] VITALS: BP_SYST 146
[2018-12-04] MEDS: FOLIC ACID 1 MG TABLET PO SCH (09:00)
[2018-12-04] MEDS: PREDNISONE 5 MG TABLET PO SCH (09:00)
--- NOTE | 2018-12-04 10:04 | NUR ---
DR. ELLIS AT BEDSIDE/PT EDUCATION MD PROVIDED PT EDUCATION AND HOSPICE EVAL DISCUSSION TO PT AND FAMILY AT BEDSIDE.
[2018-12-04 11:27] VITALS: BP_SYST 117
--- NOTE | 2018-12-04 13:20 | NUR ---
SS Note: TUCK POINTER received an order for Hospice eval. TUCK POINTER called Shannon (HCP CM) @ [phone] who stated she will call [facility] to arrange for an evaluation. SS will remain available when needed.
--- NOTE | 2018-12-04 13:22 | NUR ---
Nutrition F/U RD reviewed pt's current EMR including diet Hx, physician notes, nursing notes, pertinent labs/meds/procedures, care trends and care activity. Current Diet Order: Clear liquid diet x 1 day Subjective information: RD received Nutrition Consult for low Ashwin and poor oral intake 12/03. Pt seen in bed earlier today, w/ breakfast tray at bedside, untouched. Per VASCULAR MANAGER, pt has not been eating since yesterday. Per MD progress notes 12/04/18, for Hospice eval as discussed w/ pt's family. Current PO intake: Negligible 0% of 3 meals x 3 refusal 12/03 ESTIMATED NUTRITIONAL NEEDS CALORIES/DAY: 0228-5215 kcal/day (25-30 kcal/kg CBW for maintenance) PROTEIN/DAY: 49 gm/day (1.2 gm/kg CBW for geriatric maintenance) FLUID/DAY:1 L/day (25 ml/kg CBW for geriatric maintenance) D - Inadequate nutritional intakes related to lack of appetite as evidenced by poor PO intakes. *ongoing Chewing/swallowing difficulty related to geriatric status as evidenced by family report. *ongoing I - Recommend continuing Clear liquid diet per MD orders. M - Monitor appetite and PO intakes w/ goal of pt meeting at least 75% of estimated nutritional needs, labs trending WNL, normal GI function and skin integrity/wt maintenance
--- NOTE | 2018-12-04 13:29 | NUR ---
Dietitian Recommendation Recommend continuing Clear liquid diet per MD orders.
--- NOTE | 2018-12-04 14:00 | NUR ---
PATIENT EDUCATION PT'S FAMILY EDUCATED ON PLAN OF CARE AT BEDSIDE, VERBALIZED UNDERSTANDING AND STATED THEY HAD NO QUESTIONS REGARDING PT'S CARE.
[2018-12-04 15:33] VITALS: BP_SYST 144
[2018-12-04] MEDS: LEVOFLOXACIN 250 MG/D5W 50 ML IV SCH (17:26)
--- NOTE | 2018-12-04 18:50 | NUR ---
IV INFILTRATED/ENDORSED TO NEXT SHIFT TO AVOID OVERTIME PT'S IV IS NO LONGER PATENT, IV ANTIBIOTICS LEAKED ONTO BEDDING. PT IS A VERY DIFFICULT STICK, UNSUCCESSFUL IN INSERTING A NEW ANGIOCATH. REPLACEMENT ANTIBIOTIC ORDERED THROUGH PHARMACY, WILL ENDORSE ANGIOCATH TO NEXT SHIFT TO AVOID OVERTIME.
--- NOTE | 2018-12-04 18:58 | NUR ---
Colostomy bag change colostomy bag leaking, patient had brown formed stool in bag, stoma is 100% red, cleaned the stool, cleansed with NS and gently patted dry, sureprep on the skin around the stoma, paste ring placed and new bag placed at this time, patient tolerated well.
--- NOTE | 2018-12-04 20:00 | NUR ---
AWAKE, ALERT. DISORIENTED TO TIME, PLACE AND CIRCUMSTANCE. REORIENTED. ON ROOM AIR. LOMELI CATH PATENT DRAINING CLEAR MERVAT URINE TO GRAVITY. COLOSTOMY BAG WITH LOOSE BROWN STOOL NOTED. TELEMETRY SHOWING SINUS TACH. NO PIV NOTED.
[2018-12-04] MEDS: ACETAMINOPHEN 325 MG TABLET PO PRN (21:30)
--- NOTE | 2018-12-04 21:30 | NUR ---
ATTEMPTED SEVERAL TIMES TO START AN IV, UNABLE TO. PT IS A HARD STICK. DAUGHTER AT BEDSIDE. QUESTIONS ANSWERED. SOME EDUCATION GIVEN. TYLENOL GR 10 PO GIVEN, CRUSHED MIXED WITH CHOCOLATE PUDDING, FOR C/O HEADACHE. TURNED.
--- NOTE | 2018-12-05 | NUR ---
ANOTHER NURSE ABLE TO START AN IV IN LEFT ANTECUBITAL # 22. TURNED AND REPOSITIONED. REMAINS CONFUSED.
[2018-12-05 00:48] VITALS: BP_SYST 130
--- NOTE | 2018-12-05 02:00 | NUR ---
SOUNDLY ASLEEP. NO DISTRESS NOTED.
--- NOTE | 2018-12-05 04:00 | NUR ---
SLEPT INTERMITTENTLY. CONFUSED. WANTED TO GET OUT OF BED TO URINATE. REMINDED THAT SHE HAD A LOMELI CATHETER.
[2018-12-05] MEDS: ACETAMINOPHEN 325 MG TABLET PO PRN ×2 (05:14→22:12)
--- NOTE | 2018-12-05 05:20 | NUR ---
TYLENOL GR 10 PO , CRUSHED AND MIXED WITH CHOCOLATE PUDDING, GIVEN FOR ARTHRITIS PAIN, PER PT REQUEST.
--- NOTE | 2018-12-05 06:00 | NUR ---
SLEPT WELL ON AND OFF. COLOSTOMY INTACT. LEFT AC SALINE LOCK SLUGGISH, LEAKING ON INSERTION SITE, INADVERTENTLY DISLODGED BY RESOURCE NURSE WHEN TRYING TO SALVAGE SALINE LOCK. UNABLE TO RESTART ANOTHER ONE.
[2018-12-05] MEDS: PANTOPRAZOLE SODIUM 40 MG TAB PO SCH (06:12)
--- NOTE | 2018-12-05 07:55 | NUR ---
INITIAL NOTE RECEIVED PT IN BED, NO S/S OF DISTRESS OR SOB NOTED, PT HAS NO C/O PAIN AT THIS TIME, PT IN STABLE CONDITION, PT AAOX1, VERBAL. PT HAS NO IV CATHETER, WILL ATTEMPT TO INSERT ONE. PROVIDED PT WITH REALITY ORIENTATION, PT CONFUSED BUT COOPERATIVE. PT HAS A COLOSTOMY ON LEFT ABD, STOMA BEEFY RED. F/C DRAINING VIA GRAVITY. PT HAS BILATERAL SCD'S IN PLACE. BED AT LOWEST POSITION, CALL LIGHT WITHIN REACH, WILL CONTINUE TO MONITOR PT FOR ANY CHANGES, FALL AND SAFETY PRECAUTIONS IN PLACE. Addendum: 12/05/18 at 0957 by María Vieira RN NOTED REDNESS ON LEFT AC WITH BRUISING, NOTED BILATERAL HAND BRUISING.
[2018-12-05] MEDS: FOLIC ACID 1 MG TABLET PO SCH (08:38)
[2018-12-05] MEDS: PREDNISONE 5 MG TABLET PO SCH (08:38)
[2018-12-05 08:55] VITALS: BP_SYST 138
--- NOTE | 2018-12-05 10:02 | NUR ---
MD ROUNDS DR CALEB CEBALLOS, NEW ORDERS GIVEN. AWARE OF PATIENT'S CONDITION.
--- NOTE | 2018-12-05 10:55 | NUR ---
ROUNDS PT IN BED, NO S/S OF DISTRESS OR SOB NOTED, PT HAS NO C/O PAIN AT THIS TIME, PT IN SABLE CONDITION, PT RESTING COMFORTABLY, WILL CONTINUE TO MONITOR PT FOR ANY CHANGES.
--- NOTE | 2018-12-05 12:10 | NUR ---
ROUNDS PT IN BED, NO S/S OF DISTRESS OR SOB NOTED, PT HAS NO C/O PAIN AT THIS TIME, PT IN SABLE CONDITION, PT RESTING COMFORTABLY, WILL CONTINUE TO MONITOR PT FOR ANY CHANGES. FAMILY AT BEDSIDE.
--- NOTE | 2018-12-05 12:13 | NUR ---
MD CALL DR CALEB FOSTER, FAMILY WANTS TO HAVE PHYSICAL THERAPY TO ASSESS PT, NO ORDERS, AWAITING CALL BACK FOR ORDERS.
[2018-12-05 12:30] VITALS: BP_SYST 126
--- NOTE | 2018-12-05 13:59 | NUR ---
PHYSICAL THERAPY PHYSICAL THERAPY HERE TO EVALUATE PATIENT.
--- NOTE | 2018-12-05 14:00 | NUR ---
IV PLACEMENT: # 24 gauge angiocath placed left wrist. Use of asceptic technique. Opsite placed over site. Blood return noted. Flushed with 10 cc of normal saline. No evidence of infiltration noted. Patient tolerated. successful after 5 attempts.
--- NOTE | 2018-12-05 14:56 | NUR ---
MD CALL DR CALEB FOSTER, AWAITING CALL BACK. TO NOTIFY HIM ABOUT PHYSICAL THERAPY AND DAUGHTER WANTING HER TO STAY ONE MORE DAY AND WORK WITH PHYSICAL THERAPY AND ADVANCE DIET. Addendum: 12/05/18 at 1511 by María Vieira RN SPOKE WITH DR ELLIS AND OK TO KEEP PT ONE MORE DAY AND CONTINUE PHYSICAL THERAPY, ADVANCE DIET TO MECHANICAL SOFT DIET. WILL COME SEE PT IN AM TO D/C. SPOKE WITH DAUGHTER SHAHZAD IN LAW ABOUT PLAN OF CARE AND AGREED TO IT.
--- NOTE | 2018-12-05 15:32 | NUR ---
ST Called and left message for Minna regarding swallow eval ordered by Dr. Maravilla.
--- NOTE | 2018-12-05 15:32 | NUR ---
SWALLOW EVALUATION SPOKE WITH DR ELLIS AND MADE HIM AWARE OF THE CONCERNS OF DAUGHTER ANN FOR A POSSIBLE SWALLOW EVAL, PER MD GAVE AN ORDER FOR A SWALLOW EVAL.
--- NOTE | 2018-12-05 16:21 | NUR ---
Wound Evaluation: Wound Consult ordered for Low Ashwin Score. Patient evaluated for a low Ashwin score of 14. Patient was awake, alert, oriented x 1, and received in a Miky Bed with an At mos Air 9000 mattress. Patient needs assist to turn in bed. Recommend encourage and assist patient as needed with repositioning only every 2 hours with pillow support. Elevate, off-load and float bilateral heels with pillows. Offload pressure areas with pillows for pressure re-distribution. Perform skin care and monitor skin integrity Q shift. Use moisture barrier cream on moisture susceptible areas QID and PRN for soiling. Skin assessment: 1. Left distal medial lower extremity: Skin tear, present on admission. Skin tears site is closed and approximated. No odor, no drainage. Skin tear area and surrounding tissue has ecchymosis. Recommend: Cover site with foam dressing for protection. Assess site and change dressing every 24 hours, and when necessary for dressing soiling or dislodgment.
[2018-12-05 16:46] VITALS: BP_SYST 129
--- NOTE | 2018-12-05 17:18 | NUR ---
SWALLOW EVAL PT PASSED SWALLOW EVAL, PT CAN HAVE MECHANICAL SOFT DIET, FINELY CHOPPED, THIN LIQUIDS.
--- NOTE | 2018-12-05 17:21 | NUR ---
S.T. SWALLOW EVAL SWALLOW EVAL COMPLETED. PT PRESENTS W/ ML ORAL DYSPHAGIA W/ ML PROLONGED MASTICATION. NO S/S OF ASPIRATION. REC: MECH SOFT FINELY CHOPPED DIET. THIN LIQUIDS OK. NURSE PRABHA NOTIFIED. [id number] CJ [id number] CJ [id number] CJ NOMS LEVEL 5
[2018-12-05] MEDS: LEVOFLOXACIN 250 MG/D5W 50 ML IV SCH (17:52)
[2018-12-05] MEDS: ONDANSETRON HCL 4 MG/2 ML VIAL IVP PRN (18:20)
--- NOTE | 2018-12-05 18:36 | NUR ---
CLOSING NOTE PT IN BED, NO S/S OF DISTRESS OR SOB NOTED, PT HAS NO C/O PAIN AT THIS TIME, PT IN STABLE CONDITION, PT AAOX1, VERBAL. PT HAS AN IV CATHETER, PATENT, NO SIGNS OF INFECTION OR INFILTRATION. PROVIDED PT WITH REALITY ORIENTATION, PT CONFUSED BUT COOPERATIVE. PT HAS A COLOSTOMY ON LEFT ABD, STOMA BEEFY RED. F/C DRAINING VIA GRAVITY. PT HAS BILATERAL SCD'S IN PLACE. BED AT LOWEST POSITION, CALL LIGHT WITHIN REACH, WILL ENDORSE CARE OF PT TO INCOMING SHIFT, FALL AND SAFETY PRECAUTIONS IN PLACE.
--- NOTE | 2018-12-05 19:30 | NUR ---
INITIAL NOTES RECEIVED HANDOFF REPORT FROM OFFGOING NURSE AT THE BEDSIDE. PATIENT IS AAOX1, RESTING COMFORTABLY IN BED. NO SOB, NO ACUTE DISTRESS, NO COMPLAINTS OF PAIN AT THIS TIME. IV SITE INTACT, DRESSING CLEAN AND DRY, CURRENTLY SALINE LOCKED. LOMELI CATHETER INTACT WITH YELLOW DRAINAGE NOTED. CALL LIGHT IS WITHIN REACH. BED IS LOCKED, IN THE LOWEST POSITION, 2X SIDE RAILS UP, BED ALARM IS ON. ENCOURAGED PATIENT TO CALL FOR ASSISTANCE. WILL CONTINUE WITH PLAN OF CARE.
[2018-12-05 20:00] VITALS: BP_SYST 130
--- NOTE | 2018-12-05 21:14 | NUR ---
PATIENT RESTING IN BED, EYES CLOSED. BREATHING EVEN AND UNLABORED WITH VISIBLE CHEST RISE AND FALL NOTED. NO SOB, NO ACUTE DISTRESS, NO SIGNS OF PAIN OR FACIAL GRIMACING. CALL LIGHT WITHIN REACH.
--- NOTE | 2018-12-05 23:30 | NUR ---
Patient resting in bed, awake and alert. SUPERVISOR POWDERED SUGAR just completed incontinence care for the patient. Patient is now clean and dry. Emptied patient's colostomy bag as needed, brown/loose stool. Bed is locked, in the lowest position, 2x side rails up, bed alarm is on. Call light is within reach. Encouraged patient to call for assistance.
[2018-12-06 01:14] VITALS: BP_SYST 130
--- NOTE | 2018-12-06 01:40 | NUR ---
Patient is resting comfortably in bed, eyes closed. Breathing even and unlabored with visible chest rise and fall noted. No SOB, no acute distress, no signs of pain or facial grimacing noted. IV site intact, dressing clean and dry, saline locked. Bed is locked, in the lowest position, 2x side rails up, bed alarm is on. Call light is within reach.
--- NOTE | 2018-12-06 02:54 | NUR ---
Patient resting in bed, eyes closed. Breathing even, unlabored with visible chest rise and fall noted. No SOB, no acute distress. Call light within reach.
[2018-12-06] MEDS: HYDROcodone/ACETAMIN 10-325 MG TAB PO PRN (03:46)
--- NOTE | 2018-12-06 03:46 | NUR ---
PATIENT IS COUGHING AFTER DRINKING WATER, COMPLAINING OF CHEST PAIN FROM COUGHING. PROVIDED ORAL SUCTIONING NEEDED. AND ALSO PROVIDED PATIENT WITH NORCO PRN PER MD ORDER, SEE EMAR FOR DETAILS. PATIENT IS ALSO COMPLAINING THAT IT IS COLD. PROVIDED PATIENT WITH MORE BLANKETS NEEDED.
[2018-12-06] MEDS: PANTOPRAZOLE SODIUM 40 MG TAB PO SCH (06:13)
--- NOTE | 2018-12-06 06:26 | NUR ---
PATIENT RESTING IN BED, AAOX1. NO SOB, NO ACUTE DISTRESS, NO COMPLAINTS OF PAIN AT THIS TIME. BED IS LOCKED, IN THE LOWEST POSITION, 2X SIDE RAILS UP, BED ALARM IS ON. IV SITE INTACT, DRESSING CLEAN AND DRY, SALINE LOCKED. LOMLEI CATHETER DRAINING YELLOW URINE WITH NO INDEPENDENT LOOPING NOTED. CALL LIGHT IS WITHIN REACH. ENCOURAGED PATIENT TO CALL FOR ASSISTANCE. FALL AND SAFETY PRECAUTIONS MAINTAINED. ALL NEEDS HAVE BEEN MET DURING THIS SHIFT. WILL ENDORSE CARE TO ONCOMING DAYSHIFT NURSE.
--- NOTE | 2018-12-06 07:15 | NUR ---
received report at the bedside. patient aaox 1. lungs bilaterally diminished at the bases. breathing even and unlabored. has iv access on the left wrist #24. dry/intact. bed in low position.locked and alarmed. has harris catheter in placed draining well. yellow color. call lights within reach.
[2018-12-06 08:08] VITALS: BP_SYST 128
--- NOTE | 2018-12-06 08:18 | NUR ---
patient in bed resting. no sob nor acute distress noted.
[2018-12-06] MEDS: FOLIC ACID 1 MG TABLET PO SCH (08:38)
[2018-12-06] MEDS: PREDNISONE 5 MG TABLET PO SCH (08:38)
--- NOTE | 2018-12-06 08:40 | NUR ---
DUE MEDICATION GIVEN ORDERED. CRUSHED MEDICATION WITH APPLE SAUCE.
--- NOTE | 2018-12-06 09:31 | NUR ---
dr fernández came and evaluate the patient.
--- NOTE | 2018-12-06 10:00 | NUR ---
no skin breakdown noted on the upper and lower back including the buttocks/sacral/coccyx area. only skin tear x 2 on the left leg. no drainage noted. purplish color noted. cleanse with normal saline and apply hydrogel cream and covered with optifoam dressing on it.
--- NOTE | 2018-12-06 10:00 | NUR ---
turn to sides with pillows on the back. made comfortable.
--- NOTE | 2018-12-06 11:40 | NUR ---
SS NOTE: PRODUCTION CONTROL EXPERT phoned Shannon, HCP CM @ [phone] to inform her of discharge order of DISCHARGE HOME. Shannon already aware.
--- NOTE | 2018-12-06 11:45 | NUR ---
TURN EVERY TWO HOURS. PHOTO TAKEN AT THE LEFT LEG SKIN TEAR. CLEANSE WITH NORMAL SALINE APPLY HYDROGEL CREAM AND APPLY OPIFOAM DRESSING ON IT. LOMELI CATHETER REMOVED AND OUTPUT 300 CLEAR YELLOW URINE. ABLE TO EAT THE CHOCOLATE PUDDING ABOUT 70%.
[2018-12-06 11:54] VITALS: BP_SYST 128
--- NOTE | 2018-12-06 12:24 | NUR ---
CALLED THE DAUGHTER YECENIA PIKE INFORMING THAT HER MOM WILL GO HOME TODAY. SAID WILL CALL THE OTHER SISTER TO ENVIRONMENTAL STUDIES PROGRAM DIRECTOR. PATIENT FAMILY REFUSED TO HAVE HOSPICE EVALUATION, PER ASTER BRADY NURSE SAID.
[2018-12-06 12:45] VITALS: BP_SYST 128
--- NOTE | 2018-12-06 13:58 | NUR ---
MD KRISTIN FOFANA CALLED AT SPOKE WITH DR.JANDIAL MOSHER RAJNISH MACHINE WHITENER.
--- NOTE | 2018-12-06 14:10 | NUR ---
patient able to eat lunch about 40% of food consumed.
--- NOTE | 2018-12-06 14:12 | NUR ---
SS Note: DIRECTOR VIDEO met with dtr Elba Belle at bedside. Per dtr, the family refused hospice of [facility] because they are able to provide the patient with care 27/12, which they have done so for the last 10 years. Dtr states they have a caregiver who stays with the patient 24 hrs on MTW and on other days, the 2 other daughter's takes care of her. DIRECTOR VIDEO provided pt with HCP KARL Ortega's phone number in case they change their mind and Senior booklet for additional hospice resource. DIRECTOR VIDEO will remain available when needed.
--- NOTE | 2018-12-06 14:25 | NUR ---
discharge instruction given to the daughter. follow up with primary md and continue the same medication. no antibiotic ordered. explain to the daughter all medication to continue and each indication and side effects. dosage and frequency. informed family if any problem occurs, go the nearest emergency room or call the doctor.
--- NOTE | 2018-12-06 14:30 | NUR ---
patient left in stable condition. via wheelchair. scdh i d band removed. iv access removed. via wheelchair. no pain nor acute distress noted.
--- NOTE | 2018-12-11 14:22 | NUR ---
Discharge Follow Up Phone Call DUCT INSTALLER phoned patient, , and spoke with a family member who stated I should phone patient's daughter, Arsenio [phone]. Phoned and spoke with Arsenio. She stated she has been on the phone all morning with HCP CMs. Arsenio thought home health services would be provided after discharge. DUCT INSTALLER noted that home health was not ordered. [facility] CM with HCP has obtained an order for home health and the nurse was arriving at the door. Arsenio needed to go and stated she did not need another call back. Will remain available upon request.
== END 2018-12-06 14:30 | disposition home or self-care (01) | DRG 194 ==
LOC: SED 15:22 → STU 18:20
PROVIDERS: ADMIT Internal Medicine; ATTEND Internal Medicine
DX: J18.9 Pneumonia, unspecified organism (principal); K92.1 Melena; E11.9 Type 2 diabetes mellitus without complications; F03.90 Unspecified dementia, unspecified severity, without behavioral disturbance, psychotic disturbance, mood disturbance, and anxiety; I35.0 Nonrheumatic aortic (valve) stenosis; K21.9 Gastro-esophageal reflux disease without esophagitis; I50.9 Heart failure, unspecified; K27.9 Peptic ulcer, site unspecified, unspecified as acute or chronic, without hemorrhage or perforation; M06.9 Rheumatoid arthritis, unspecified; Z83.3 Family history of diabetes mellitus; Z93.3 Colostomy status; Z88.8 Allergy status to other drugs, medicaments and biological substances; Z88.0 Allergy status to penicillin; Z79.899 Other long term (current) drug therapy; Z87.81 Personal history of (healed) traumatic fracture
CPT/HCPCS: 36415; 71045; 74018; 80053; 80061; 82962; 83036; 83605; 83880; 84484; 85025; 85610-TC; 85730-TC; 87040-TC; 92610-GN; 93005; 93306; 93880; 94640; 94760; 96365; 97110-GP; 97530-GP; 99285; A5061; G0378; J1200; J1815; J1956; J2405; J2765; J7030; J7512

== ENCOUNTER 2019-03-08 19:21 | Emergency (ER) | payer OTHER ==
[~2019-03-08] VITALS: Ht 139.7 cm; Wt 37.2 kg
[~2019-03-08 19:21] MED LIST changes: -CIPR-211 PO; -OMEP20CA10 PO; +OMEP20CA11 PO
--- NOTE | 2019-03-08 19:22 | NUR ---
Patient to ER bed 02 to gown for evaluation. Side rails up.
--- NOTE | 2019-03-08 19:30 | NUR ---
Pt came to the ED for acute right forehead laceration post fall. Reported pt was picking up a noodle off the floor. Denies n/v/d or fever. Denies blurred vision. No other complaints/injurioes noted. Will cont. to monitor.
[2019-03-08 19:39] VITALS: BP_SYST 153
[2019-03-08] MEDS ORDERED: LIDOCAINE 1% 10 MG/ML, 20 ML MDV INJ ONE (20:30)
--- NOTE | 2019-03-08 22:05 | NUR ---
Dr. Johnson at bedside performing laceration repair.
--- NOTE | 2019-03-08 22:10 | NUR ---
Dr. Johnson placed 3 cliff. Tolerated well. Will cont. to monitor.
[2019-03-08] MEDS ORDERED: BACITRACIN ZINC 15 GM TOPICAL OINTMENT TP ONE (22:15)
[2019-03-08] MEDS ORDERED: BACITRACIN 1 GM OINT TP ONE (22:26)
--- NOTE | 2019-03-08 22:27 | NUR ---
Placing sterile bandage on laceration.
[2019-03-08 22:38] VITALS: BP_SYST 153
--- NOTE | 2019-03-08 22:38 | NUR ---
Patient given written and verbal discharge instructions and verbalizes understanding. ER MD Dr. Johnson discussed with patient the results and treatment provided. Patient in stable condition. ID arm band removed. Rx of tylenol given. Patient educated on pain management and to follow up with PMD. Pain Scale 0/10. Opportunity for questions provided and answered. Medication side effect fact sheet provided.
== END 2019-03-08 22:38 | disposition home or self-care (01) ==
LOC: SED 19:21
DX: S01.81XA Laceration without foreign body of other part of head, initial encounter (principal); E11.9 Type 2 diabetes mellitus without complications; F03.90 Unspecified dementia, unspecified severity, without behavioral disturbance, psychotic disturbance, mood disturbance, and anxiety; Z88.0 Allergy status to penicillin; Z79.899 Other long term (current) drug therapy; W19.XXXA Unspecified fall, initial encounter; Y93.89 Activity, other specified; Y92.89 Other specified places as the place of occurrence of the external cause; Y99.8 Other external cause status
CPT/HCPCS: 12011; 99283; J2001

== ENCOUNTER 2020-07-09 15:00 | Emergency (ER) | payer OTHER ==
[~2020-07-09] VITALS: Ht 144.8 cm; Wt 39.5 kg
[~2020-07-09 15:00] MED LIST changes: -OMEP20CA11 PO; +OMEP20CA15 PO
[2020-07-09 15:21] VITALS: BP_SYST 103
--- NOTE | 2020-07-09 15:24 | NUR ---
Patient to ER bed 4 to gown for evaluation. Side rails up.
--- NOTE | 2020-07-09 15:24 | NUR ---
PT BROUGHT TO ER AFTER FALLING OUT OF W/C AT HOME WITH CAREGIVER. PT PRESENTS WITH R HEAD BRUISE AND R FINGER BRUISE, ALSO COMPLAINT OF R WRIST PAIN. DAUGHTER CONCERNED ABOUT WRIST
--- NOTE | 2020-07-09 15:50 | NUR ---
ER Dr. Pope at bedside examining patient.
--- NOTE | 2020-07-09 16:00 | NUR ---
Patient transported to radiology via gurney, accompanied by staff.
[2020-07-09 19:05] VITALS: BP_SYST 103
--- NOTE | 2020-07-09 19:06 | NUR ---
Patient given written and verbal discharge instructions and verbalizes understanding. ER MD discussed with patient the results and treatment provided. Patient in stable condition. ID arm band removed. No prescriptions given. Patient educated on pain management and to follow up with PMD. Pain Scale 0. Opportunity for questions provided and answered. Medication side effect fact sheet provided.
== END 2020-07-09 19:06 | disposition home or self-care (01) ==
LOC: SED 15:00
DX: S00.03XA Contusion of scalp, initial encounter (principal); E11.9 Type 2 diabetes mellitus without complications; K21.9 Gastro-esophageal reflux disease without esophagitis; Z79.899 Other long term (current) drug therapy; Z88.0 Allergy status to penicillin; W05.0XXA Fall from non-moving wheelchair, initial encounter; Y93.89 Activity, other specified; Y92.89 Other specified places as the place of occurrence of the external cause; Y99.8 Other external cause status
CPT/HCPCS: 70450-TC; 72125-TC; 99285

== ENCOUNTER 2020-10-03 17:42 | Emergency (ER) | payer OTHER ==
[~2020-10-03] VITALS: Ht 149.9 cm; Wt 37.2 kg
[2020-10-03 18:13] VITALS: BP_SYST 134
[2020-10-03] MEDS ORDERED: LIDOCAINE 1%, 20 ML MDV 20 ML ONE (19:26)
[2020-10-03] MEDS ORDERED: BACITRACIN 1 GM OINT TP ONE ×2 (19:58→20:00)
[2020-10-03 20:02] VITALS: BP_SYST 157
[2020-10-03] MEDS ORDERED: HYDR-3917 PO (20:14)
== END 2020-10-03 20:07 | disposition home or self-care (01) ==
LOC: SED 17:42
DX: S82.101A Unspecified fracture of upper end of right tibia, initial encounter for closed fracture (principal); E11.9 Type 2 diabetes mellitus without complications; K21.9 Gastro-esophageal reflux disease without esophagitis; Z79.899 Other long term (current) drug therapy; Z88.0 Allergy status to penicillin; W18.39XA Other fall on same level, initial encounter; Y93.89 Activity, other specified; Y92.89 Other specified places as the place of occurrence of the external cause; Y99.8 Other external cause status
CPT/HCPCS: 12002; 73110; 73610; 99284; J2001